=== PATIENT | female | born 1960 | race Caucasian/White ===

== ENCOUNTER 2019-05-11 09:31 | Inpatient (IN) | payer BC, SELFPAY ==
[2019-05-11] VITALS (62 sets, daily range): BP systolic 81–112; BP diastolic 51–71; PULSE 85–107; RESP 18–22; TEMP 36.9–37.3; O2SAT 86–96; BMI 28.3
--- NOTE | 2019-05-11 09:47 | ED_ITS ---
Entered by Arvind Self LPN, acting as scribe for Jj Taylor DO HPI - Nausea/Vomiting/Diarrhea General: Chief complaint: Nausea/Vomiting/Diarrhea Stated complaint: dizzy Time Seen by Provider: 05/11/19 09:40 Source: patient and RN notes reviewed Mode of arrival: ambulatory Limitations: no limitations History of Present Illness: HPI Narrative: 59 yo female presents with c/o n/v/d that started this am. No blood in emesis or stool. She reports intermittent hot and cold chills. No known fever, temp is 98.4 upon arrival to ER. She reports hurting all over. She c/o dizziness to nursing. Pt with h/o DM, did not take her meds this am. MD elicited complaint: nausea, vomiting and diarrhea Onset (ago): hour(s) (onset 0500 this am) Associated nausea: Yes Associated symtoms: Reports dizziness and nausea; Denies bloating, chest pain, dysuria, fatigue or malaise Review of Systems Const: Reports: chills; Denies: fever, body aches, change in appetite, fatigue or malaise ENMT: Denies: throat pain, ear pain, nasal discharge or nasal congestion Card: Denies: chest pain, edema, shortness of breath on exertion or shortness of breath when lying down Resp: Denies: shortness of breath, productive cough or non-productive cough GI: Reports: abdominal pain (generalized), nausea, vomiting and diarrhea; Denies: vomiting blood, coffee grounds in vomit, constipation, bloating, blood in stool or black tarry stool : Denies: flank pain, difficulty urinating, painful urination, urinary frequency or urinary urgency Skin/Breast: Denies: rash or itching Neuro: Reports: dizziness PFSH ED PFSH: Statuses (acute, chronic, etc) shown below reflect problem list status as previously entered and may not be historically accurate Surgical History History of tonsillectomy (Acute) Family History Other CAD (coronary artery disease) Social History Smoking and tobacco status: never smoked Alcohol intake: never Substance/Drug Use: never Physical Exam Const: COMMON NORMALS: oriented x3, no limitations and alert GENERAL APPEARANCE: cooperative and other (ill appearing) ORIENTATION/CONSCIOUSNESS: Yes awake, Yes oriented to person, Yes oriented to place and Yes oriented to time HENMT: COMMON NORMALS: normocephalic, head/scalp atraumatic, hearing grossly normal bilaterally, external ears normal, EAC's normal, TM's normal bilaterally, nasal mucous membranes and turbinates normal, moist oral mucous membranes and oropharynx normal HEAD & SCALP: normocephalic and atraumatic NOSE: nasal mucous membranes and turbinates normal EXTERNAL EAR: Yes external ears normal EXTERNAL AUDITORY CANAL: EAC's normal TYMPANIC MEMBRANE: TM's normal bilaterally Eye: COMMON NORMALS: PERRL, EOMs intact bilaterally, conjunctivae normal and no scleral icterus CONJUNCTIVA: Yes conjunctivae normal PUPIL: Yes PERRL Neck/C-Spine: COMMON NORMALS: full ROM, no lymphadenopathy, supple and no JVD Lymph: LYMPHATIC: no lymphadenopathy noted and no lymphedema noted Resp: COMMON NORMALS: normal respiratory effort, no retractions, no use of accessory muscles and clear to auscultation bilaterally AUSCULTATION: clear to auscultation bilaterally Cardio: COMMON NORMALS: no JVD, regular rate, regular rhythm and no murmurs RATE: regular rate RHYTHM: regular rhythm GI: COMMON NORMALS: no hepatosplenomegaly AUSCULTATION: Yes normoactive bowel sounds PALPATION: Yes tender (generalized) and Yes no hepatosplenomegaly : BLADDER/KIDNEY EXAM: Yes CVA tenderness (R>>L) Back/Pelvis: GENERAL BACK: Yes CVA tenderness (R>>L) CVA tenderness: bilateral Extremity: COMMON NORMALS: normal to inspection, normal capillary refill, no clubbing, cyanosis or edema, no calf tenderness and no pedal edema Neuro: COMMON NORMALS: oriented x3 SENSORIUM/ORIENTATION: Yes alert, Yes oriented to person, Yes oriented to place and Yes oriented to time Skin: COMMON NORMALS: no rashes or lesions noted GENERAL SKIN EXAM: no rashes or lesions noted and other (face flushed) Course Consultations: Consultation #1: Discussed with Dr. Martinez. He accepts for admission. Time: 16:07 Vital Signs: Vital signs: Vital Signs Temperature 97.6 F 05/13/19 11:36 Pulse Rate 80 05/13/19 11:36 Respiratory Rate 18 05/13/19 11:36 Blood Pressure 136/79 05/13/19 11:36 Pulse Oximetry 93 05/13/19 11:36 MDM - Nausea/Vomiting/Diarrhea Lab Data: Labs: Lab Results 05/11/19 05/11/19 05/11/19 Range/Units 10:02 10:02 10:02 WBC 5.9 (4.0-10.0) 10^3/ uL RBC 4.75 (4.1-5.3) 10^6/u L Hgb 14.9 (11.5-15.3) g/dL Hct 46.6 (37.0-47.0) % MCV 98.1 (81-99) fL MCH 31.4 (28.0-34.0) pg MCHC 32.0 (30.0-36.0) g/dL RDW 13.4 (12.1-15.1) % Plt Count 246 (130-400) 10^3/c mm MPV 9.7 (7.4-10.4) fL Neut % (Auto) 91.6 % Lymph % (Auto) 6.0 % [place] % (Auto) 0.5 % Eos % (Auto) 0.2 % Baso % (Auto) 0.3 % Neut # (Auto) 5.4 (1.8-7.7) 10^3/u L Lymph # (Auto) 0.4 L (0.8-4.8) 10^3/u L [place] # (Auto) 0.0 L (0.2-0.9) 10^3/u L Eos # (Auto) 0.0 (0.0-0.8) 10^3/u L Baso # (Auto) 0.0 (0.0-0.1) 10^3/u L Nucleated RBC % (a uto) 0 % Nucleated RBCs # 0.0 /100WBC Sodium 139 (136-145) mmol/L Potassium 3.5 (3.5-5.1) mmol/L Chloride 102 (98-107) mmol/L Carbon Dioxide 21 L (22-29) mmol/L Anion Gap 19.5 H (5-19) BUN 22 H (6-20) mg/dL Creatinine 1.3 H (0.5-0.9) mg/dL GFR Calculation 42.2 L (90-130) mL/min Glucose 458 H (74-109) mg/dL Calcium 9.3 (8.6-10.0) mg/Dl Total Bilirubin 0.9 (0.15-1.2) mg/dL AST 14 (0-32) U/L ALT 20 (0-33) U/L Alkaline Phosphata se 106 H (35-105) IU/L Troponin I 6 Hour (0-10) ng/L Troponin I Hi Sens Del (0-12) ng/L Troponin T Baselin e 30 H (0-10) ng/mL Troponin T 120 Min [place] (0-10) ng/mL Delta Troponin T (0-10) ABS# Total Protein 5.8 L (6.6-8.7) g/dL Albumin 3.7 (3.5-5.2) g/dL Globulin 2.1 (1.3-4.6) g/dL Urine Color (Yellow) Urine Appearance (CLEAR) Urine pH (5-7) Ur Specific Gravit y (1.005-1.030) Urine Protein (Negative) Urine Glucose (UA) (Normal) Urine Ketones (Negative) Urine Occult Blood (Negative) Urine Nitrate (Negative) Urine Bilirubin (NEGATIVE) Urine Urobilinogen (Negative) mg/dL Ur Leukocyte Izzy ase (Negative) Urine RBC (0-2) /hpf Urine WBC (0-5) /hpf Ur Squamous Epith Cells (0-5) Urine Bacteria (NONE) Influenza Type A A g (Negative) POC Influenza B Ag (Negative) 05/11/19 05/11/19 05/11/19 Range/Units 10:11 12:18 12:21 WBC (4.0-10.0) 10^3/ uL RBC (4.1-5.3) 10^6/u L Hgb (11.5-15.3) g/dL Hct (37.0-47.0) % MCV (81-99) fL MCH (28.0-34.0) pg MCHC (30.0-36.0) g/dL RDW (12.1-15.1) % Plt Count (130-400) 10^3/c mm MPV (7.4-10.4) fL Neut % (Auto) % Lymph % (Auto) % [place] % (Auto) % Eos % (Auto) % Baso % (Auto) % Neut # (Auto) (1.8-7.7) 10^3/u L Lymph # (Auto) (0.8-4.8) 10^3/u L [place] # (Auto) (0.2-0.9) 10^3/u L Eos # (Auto) (0.0-0.8) 10^3/u L Baso # (Auto) (0.0-0.1) 10^3/u L Nucleated RBC % (a uto) % Nucleated RBCs # /100WBC Sodium (136-145) mmol/L Potassium (3.5-5.1) mmol/L Chloride (98-107) mmol/L Carbon Dioxide (22-29) mmol/L Anion Gap (5-19) BUN (6-20) mg/dL Creatinine (0.5-0.9) mg/dL GFR Calculation (90-130) mL/min Glucose (74-109) mg/dL Calcium (8.6-10.0) mg/Dl Total Bilirubin (0.15-1.2) mg/dL AST (0-32) U/L ALT (0-33) U/L Alkaline Phosphata se (35-105) IU/L Troponin I 6 Hour (0-10) ng/L Troponin I Hi Sens Del (0-12) ng/L Troponin T Baselin e (0-10) ng/mL Troponin T 120 Min [place] 25.69 H (0-10) ng/mL Delta Troponin T -4.31 L (0-10) ABS# Total Protein (6.6-8.7) g/dL Albumin (3.5-5.2) g/dL Globulin (1.3-4.6) g/dL Urine Color Yellow (Yellow) Urine Appearance Hazy A (CLEAR) Urine pH 7 (5-7) Ur Specific Gravit y 1.005 (1.005-1.030) Urine Protein Neg (Negative) Urine Glucose (UA) 2+ (Normal) Urine Ketones 1+ H (Negative) Urine Occult Blood 3+ H (Negative) Urine Nitrate Negative (Negative) Urine Bilirubin Neg (NEGATIVE) Urine Urobilinogen Norm (Negative) mg/dL Ur Leukocyte Izzy ase 2+ H (Negative) Urine RBC >100 H (0-2) /hpf Urine WBC Too numerous to c nt H (0-5) /hpf Ur Squamous Epith Cells 5-10 H (0-5) Urine Bacteria 4+ H (NONE) Influenza Type A A g Negative (Negative) POC Influenza B Ag Negative (Negative) 05/11/19 Range/Units 16:04 WBC (4.0-10.0) 10^3/ uL RBC (4.1-5.3) 10^6/u L Hgb (11.5-15.3) g/dL Hct (37.0-47.0) % MCV (81-99) fL MCH (28.0-34.0) pg MCHC (30.0-36.0) g/dL RDW (12.1-15.1) % Plt Count (130-400) 10^3/c mm MPV (7.4-10.4) fL Neut % (Auto) % Lymph % (Auto) % Montgomery % (Auto) % Eos % (Auto) % Baso % (Auto) % Neut # (Auto) (1.8-7.7) 10^3/u L Lymph # (Auto) (0.8-4.8) 10^3/u L [place] # (Auto) (0.2-0.9) 10^3/u L Eos # (Auto) (0.0-0.8) 10^3/u L Baso # (Auto) (0.0-0.1) 10^3/u L Nucleated RBC % (a uto) % Nucleated RBCs # /100WBC Sodium (136-145) mmol/L Potassium (3.5-5.1) mmol/L Chloride (98-107) mmol/L Carbon Dioxide (22-29) mmol/L Anion Gap (5-19) BUN (6-20) mg/dL Creatinine (0.5-0.9) mg/dL GFR Calculation (90-130) mL/min Glucose (74-109) mg/dL Calcium (8.6-10.0) mg/Dl Total Bilirubin (0.15-1.2) mg/dL AST (0-32) U/L ALT (0-33) U/L Alkaline Phosphata se (35-105) IU/L Troponin I 6 Hour 23.58 H (0-10) ng/L Troponin I Hi Sens Del -6.42 L (0-12) ng/L Troponin T Baselin e (0-10) ng/mL Troponin T 120 Min [place] (0-10) ng/mL Delta Troponin T (0-10) ABS# Total Protein (6.6-8.7) g/dL Albumin (3.5-5.2) g/dL Globulin (1.3-4.6) g/dL Urine Color (Yellow) Urine Appearance (CLEAR) Urine pH (5-7) Ur Specific Gravit y (1.005-1.030) Urine Protein (Negative) Urine Glucose (UA) (Normal) Urine Ketones (Negative) Urine Occult Blood (Negative) Urine Nitrate (Negative) Urine Bilirubin (NEGATIVE) Urine Urobilinogen (Negative) mg/dL Ur Leukocyte Izzy ase (Negative) Urine RBC (0-2) /hpf Urine WBC (0-5) /hpf Ur Squamous Epith Cells (0-5) Urine Bacteria (NONE) Influenza Type A A g (Negative) POC Influenza B Ag (Negative) Imaging Data^: CT Abd/Pel: Radiologist's impression: Patient: Shakira DREW #: [id number] : 2Acct#:[id number] Age/Sex: 59 / FADM Date: 05/11/19 Loc: ERRoom/Bed: Attending Dr: Ordering Provider/Ordering MD: Jj Taylor DO Date of Service: 05/11/19 Procedure(s): CT kidney stone 68717 Accession Number(s): [id number] Report Number: [id number] PROCEDURE INFORMATION: Exam: CT Abdomen And Pelvis Without Contrast Exam date and time: 05/11/2019 1:10 PM Age: 59 years old Clinical indication: Abdominal pain; Other: Abd and back pain; Additional info: Hematuria TECHNIQUE: Imaging protocol: Computed tomography of the abdomen and pelvis without contrast. Total DLP: 1425.6 mGy-cm Radiation optimization: All CT scans at this facility use at least one of these dose optimization techniques: automated exposure control; mA and/or kV adjustment per patient size (includes targeted exams where dose is matched to clinical indication); or iterative reconstruction. COMPARISON: No relevant prior studies available. FINDINGS: Lungs: There are centrilobular emphysematous changes in the bilateral lungs. Streaky densities at the lung bases are most consistent with scarring and/or atelectasis. Liver: Normal. No mass. Gallbladder and bile ducts: Normal. No calcified stones. No ductal dilation. Pancreas: An 11 mm cystic lesion along the anterior aspect of the pancreatic body. Spleen: Normal. No splenomegaly. Adrenals: Adrenal glands are somewhat full appearing without a distinct mass lesions seen. Left adrenal gland is somewhat obscured by the left perinephric stranding. Kidneys and ureters: Moderate left hydronephrosis and left hydroureter with associated perinephric and periureteral inflammatory stranding. A submillimeter calcification along the distal left ureter seen on series 2, image 139 appears to be positioned outside the ureter and represents a phlebolith. No definite obstructing ureteral calculus identified. Stomach and bowel: Unremarkable. No obstruction. No mucosal thickening. Appendix: No evidence of appendicitis. Intraperitoneal space: Unremarkable. No free air. No significant fluid collection. Vasculature: Unremarkable. No abdominal aortic aneurysm. Lymph nodes: Unremarkable. No enlarged lymph nodes. Bladder: Unremarkable as visualized. Reproductive: Fibroid uterus. Bones/joints: Unremarkable. No acute fracture. Soft tissues: Unremarkable. CT/CT kidney stone [id number] IMPRESSION: 1. There is a left perinephric/periureteral inflammatory stranding with hydronephrosis/hydroureter. No definite obstructing urinary tract calculus identified. CT scan abdomen/pelvis with IV contrast and delayed images, renal protocol recommended to evaluate for pyelonephritis if clinically warranted. 2. There is an 11 mm cystic lesion along the anterior aspect of the pancreas.Recommend reimage every 1 year for 5 years. (ROSA Millard et al. ACR White Paper, October 2016) 3. There are centrilobular emphysematous changes in the bilateral lungs. Radiation Dose CTDIVOL = (mGy): DLP = 1425.6 (mGy-cm) Dictated By:Cindy Olmedo MD EKG Data^: EKG 1: Attestation: I personally reviewed and interpreted this EKG as follows: Prior EKG tracings: not available for review Computer generated interpretation: Measurements Intervals [place] Rate: 107 P: 44 [place]: 126 QRS: -1 QRSD: 87 T: 24 QT: 324 QTc: 432 SINUS TACHYCARDIA ABNORMAL RHYTHM ECG INTERPRETATION BASED ON A DEFAULT AGE OF 40 YEARS No previous ECG available for comparison [id number] Dictated By:INTERFACE,USER Signed By:Signed Date/Time: DD/ 1049 EKG 2: Computer generated interpretation: Measurements Intervals [place] Rate: 109 P: 31 IL: 133 QRS: -15 QRSD: 93 T: 1 QT: 317 QTc: 428 SINUS TACHYCARDIA LOW QRS VOLTAGE IN PRECORDIAL LEADS [QRS DEFLECTION < 1.0 mV IN CHEST LEADS] POSSIBLE ANTERIOR MYOCARDIAL INFARCTION , OF INDETERMINATE AGE [30 ms Q WAVE IN V3/V V3/V V3/V V3/V4, OR R < 0.2 mV IN V4] INFERIOR MYOCARDIAL INFARCTION , PROBABLY OLD [40+ ms Q WAVE AND/OR ST/T ABN ABNORMALITY IN II/aVF] INTERPRETATION BASED ON A DEFAULT AGE OF 40 YEARS No previous ECG available for comparison [email or web address] [id number] Dictated By:INTERFACE,USER Signed By:Signed Date/Time: DD/ 1211 Discharge Plan Discharge Patient Disposition: Admitted As Inpatient Admit Provider: Lavon Martinze Clinical Impression: Acute pyelonephritis, Diabetes Condition: Stable Referrals: Moon Mahmood FNP [Primary Care Provider] - Interventions: ED Discharge Assessment Last Done: 05/11/19 16:55 Discharge Date/Time: 05/11/19 17:20 Coding Level of Care Code ED Certified Orthotist Practice Manager for Chg Fwd Exam Problem Focused The documentation recorded by the Aramis russell Dani Elizabeth, LPN, accurately reflects the service I personally performed and the decisions made by Brandon lovett Curtis L, DO May 11, 2019 09:31
[2019-05-11] MEDS: sodium chloride 0.9% 1,000 ML 999 ML IV (10:04)
[2019-05-11] MEDS: ondansetron 2 mg/ML SDV 2 mL 4 MG IVP (10:04)
--- NOTE | 2019-05-11 10:05 | ECG_ITS ---
Measurements Intervals [place] Rate: 107 P: 44 [place]: 126 QRS: -1 QRSD: 87 T: 24 QT: 324 QTc: 432 SINUS TACHYCARDIA ABNORMAL RHYTHM ECG INTERPRETATION BASED ON A DEFAULT AGE OF 40 YEARS No previous ECG available for comparison Electronically Signed On 05-11-2019 16:47:17 INDUSTRIAL SALES MANAGER by Jessica Farley M.D. [id number]
[2019-05-11 10:15] LABS: Basophils % 0.3 %; Eosinophils % 0.2 %; Hematocrit 46.6 % (37.0-47.0); Hemoglobin 14.9 g/dL (11.5-15.3); Lymphocytes # 0.4 10^3/uL (0.8-4.8); Mean Corpuscular Hemoglobin 31.4 pg (28.0-34.0); Mean Corpuscular Volume 98.1 fL (81-99); Mean Platelet Volume 9.7 fL (7.4-10.4); Monocytes % 0.5 %; Neutrophils # 5.4 10^3/uL (1.8-7.7); Neutrophils % 91.6 %; Nucleated Red Blood Cells % 0 %; Platelet Count 246 10^3/cmm (130-400); Red Blood Count 4.75 10^6/uL (4.1-5.3); Red Cell Distribution Width 13.4 % (12.1-15.1); White Blood Count 5.9 10^3/uL (4.0-10.0)
[2019-05-11 10:30] LABS: Alanine Aminotransferase 20 U/L (0-33); Albumin Level 3.7 g/dL (3.5-5.2); Alkaline Phosphatase 106 IU/L (35-105); Anion Gap 19.5 (5-19); Aspartate Amino Transferase 14 U/L (0-32); Blood Urea Nitrogen 22 mg/dL (6-20); Calcium 9.3 mg/Dl (8.6-10.0); Carbon Dioxide 21 mmol/L (22-29); Chloride 102 mmol/L (98-107); Globulin 2.1 g/dL (1.3-4.6); Glomerular Filtration Rate 42.2 mL/min (90-130); Glucose 458 mg/dL (74-109); Potassium 3.5 mmol/L (3.5-5.1); Sodium 139 mmol/L (136-145); Total Bilirubin 0.9 mg/dL (0.15-1.2); Total Protein 5.8 g/dL (6.6-8.7)
[2019-05-11 10:31] LABS: Troponin(5th) Baseline 30 ng/mL (0-10)
[2019-05-11 10:47] LABS: Slide Review Slide Review Perform
[2019-05-11 11:10] LABS: Influenza A by IFA Negative (Negative); Influenza B by IFA Negative (Negative)
--- NOTE | 2019-05-11 12:05 | ECG_ITS ---
Measurements Intervals [place] Rate: 109 P: 31 NM: 133 QRS: -15 QRSD: 93 T: 1 QT: 317 QTc: 428 SINUS TACHYCARDIA LOW QRS VOLTAGE IN PRECORDIAL LEADS [QRS DEFLECTION < 1.0 mV IN CHEST LEADS] POSSIBLE ANTERIOR MYOCARDIAL INFARCTION , OF INDETERMINATE AGE [30 ms Q WAVE IN V3/V4, OR R < 0.2 mV IN V4] INFERIOR MYOCARDIAL INFARCTION , PROBABLY OLD [40+ ms Q WAVE AND/OR ST/T ABN ABNORMALITY IN II/aVF] INTERPRETATION BASED ON A DEFAULT AGE OF 40 YEARS No previous ECG available for comparison Electronically Signed On 05-11-2019 16:51:54 AUCTION ASSISTANT by Jessica Farley M.D. [id number]
[2019-05-11 12:56] LABS: Urine Appearance Hazy (CLEAR); Urine Color Yellow (Yellow); pH Urine 7 (5-7)
[2019-05-11 12:57] LABS: Add Urine Microscopic? YES; Bilirubin Urine Neg (NEGATIVE); Blood Urine 3+ (Negative); Glucose Urine UA 2+ (Normal); Ketones Urine 1+ (Negative); Leukocyte Esterase Urine 2+ (Negative); Nitrate Urine Negative (Negative); Protein Urine Neg (Negative); Specific Gravity, Urine 1.005 (1.005-1.030); Urobilinogen Urine Norm (Negative)
[2019-05-11 13:00] LABS: Troponin 5 2HR 25.69 ng/mL (0-10)
[2019-05-11 13:03] LABS: RBC Urine >100 /hpf (0-2)
[2019-05-11 13:04] LABS: Add Urine Culture? Yes; Bacteria Urine 4+; WBC Urine TOO NUMEROUS TO CNT /hpf (0-5)
--- NOTE | 2019-05-11 13:08 | CTR_ITS ---
PROCEDURE INFORMATION: Exam: CT Abdomen And Pelvis Without Contrast Exam date and time: 05/11/2019 1:10 PM Age: 59 years old Clinical indication: Abdominal pain; Other: Abd and back pain; Additional info: Hematuria TECHNIQUE: Imaging protocol: Computed tomography of the abdomen and pelvis without contrast. Total DLP: 1425.6 mGy-cm Radiation optimization: All CT scans at this facility use at least one of these dose optimization techniques: automated exposure control; mA and/or kV adjustment per patient size (includes targeted exams where dose is matched to clinical indication); or iterative reconstruction. COMPARISON: No relevant prior studies available. FINDINGS: Lungs: There are centrilobular emphysematous changes in the bilateral lungs. Streaky densities at the lung bases are most consistent with scarring and/or atelectasis. Liver: Normal. No mass. Gallbladder and bile ducts: Normal. No calcified stones. No ductal dilation. Pancreas: An 11 mm cystic lesion along the anterior aspect of the pancreatic body. Spleen: Normal. No splenomegaly. Adrenals: Adrenal glands are somewhat full appearing without a distinct mass lesions seen. Left adrenal gland is somewhat obscured by the left perinephric stranding. Kidneys and ureters: Moderate left hydronephrosis and left hydroureter with associated perinephric and periureteral inflammatory stranding. A submillimeter calcification along the distal left ureter seen on series 2, image 139 appears to be positioned outside the ureter and represents a phlebolith. No definite obstructing ureteral calculus identified. Stomach and bowel: Unremarkable. No obstruction. No mucosal thickening. Appendix: No evidence of appendicitis. Intraperitoneal space: Unremarkable. No free air. No significant fluid collection. Vasculature: Unremarkable. No abdominal aortic aneurysm. Lymph nodes: Unremarkable. No enlarged lymph nodes. Bladder: Unremarkable as visualized. Reproductive: Fibroid uterus. Bones/joints: Unremarkable. No acute fracture. Soft tissues: Unremarkable. CT/CT kidney stone [id number] IMPRESSION: 1. There is a left perinephric/periureteral inflammatory stranding with hydronephrosis/hydroureter. No definite obstructing urinary tract calculus identified. CT scan abdomen/pelvis with IV contrast and delayed images, renal protocol recommended to evaluate for pyelonephritis if clinically warranted. 2. There is an 11 mm cystic lesion along the anterior aspect of the pancreas.Recommend reimage every 1 year for 5 years. (AJ Megibow, et al. ACR White Paper, October 2016) 3. There are centrilobular emphysematous changes in the bilateral lungs. Radiation Dose CTDIVOL = (mGy): DLP = 1425.6 (mGy-cm)
[2019-05-11 13:21] LABS: Troponin 5 2HR Delta -4.31 ABS# (0-10)
--- NOTE | 2019-05-11 16:05 | ECG_ITS ---
Measurements Intervals [place] Rate: 103 P: 26 [place]: 135 QRS: -8 QRSD: 85 T: 10 QT: 324 QTc: 426 SINUS TACHYCARDIA LOW QRS VOLTAGE IN PRECORDIAL LEADS [QRS DEFLECTION < 1.0 mV IN CHEST LEADS] INFERIOR MYOCARDIAL INFARCTION [40+ ms Q WAVE AND/OR ST/T ABNORMALITY IN II/aVF], PROBABLY OLD No previous ECG available for comparison Electronically Signed On 05-11-2019 16:52:03 BENZENE WASHER by Jessica Farley M.D. [id number]
[2019-05-11 16:24] LABS: Troponin 5 6HR 23.58 ng/L (0-10)
[2019-05-11 16:34] LABS: Troponin 5 6HR Delta -6.42 ng/L (0-12)
--- NOTE | 2019-05-11 17:07 | P.HP_ITS ---
Providers/Chief Complaint Primary Care Provider: Moon MahmoodP Chief Complaint: pydoneephtitis;dm History of Present Illness CRISTAL DREW is a 59 year old female with a past medical history of type 2 diabetes mellitus, recent hemoglobin A1c 10, who presents to the emergency room for nausea, malaise, fevers, chills, back pain for the last 12 hours. Patient states that she woke up this morning with significant nausea, malaise, fatigue, fevers, chills. No cough. No shortness of breath. No chest pain. No abdominal pain. Does report diarrhea. Does report bilateral lower back pain which is new for her. No dysuria. No hematuria. No increased urinary frequency. No history of kidney stones. No history of UTIs. No sick contacts. No recent travel. States that she lives by herself in [facility], her parents live a few blocks away from her. Review of Systems Const: Reports: fever, chills, body aches and malaise Eyes: Denies: change in vision ENMT: Denies: nasal congestion Card: Denies: chest pain Resp: Denies: shortness of breath, productive cough or non-productive cough GI: Reports: nausea; Denies: abdominal pain or vomiting : Reports: flank pain; Denies: difficulty urinating, painful urination, urinary frequency, urinary urgency, urinary hesitancy, urinary dribbling, nighttime urination, decreased urine ouput, urinary incontinence or blood in urine Skin/Breast: Denies: rash Neuro: Denies: headache Psych: Denies: anxiety Endo: Reports: excessive thirst; Denies: excessive urination Medications/Allergies Home Medications Medication Instructions Recorded Confirmed Last Taken Type glipizide 5 mg PO BID 05/11/19 05/11/19 05/10/19 History metformin 1,000 mg PO BID 05/11/19 05/11/19 05/10/19 History Allergies Allergy/AdvReac Type Severity Reaction Status Date / Time No Known Allergies Allergy Verified 05/11/19 09:50 PFSH Acute PFSH: Statuses (acute, chronic, etc) shown below reflect problem list status as previously entered and may not be historically accurate Surgical History (Updated 05/11/19 @ 17:09 by Lavon Martinez MD) History of tonsillectomy (Acute) Family History (Updated 05/11/19 @ 17:10 by Lavon Martinez MD) Other CAD (coronary artery disease) Social History (Updated 05/11/19 @ 17:10 by Lavon Martinez MD) Smoking and tobacco status: never smoked Alcohol intake: never Substance/Drug Use: never Vitals/I&O/Wt Last Vital Signs Temp 98.4 F 05/11/19 09:47 Pulse 85 05/11/19 16:55 Resp 18 05/11/19 16:55 BP 96/64 05/11/19 16:55 Pulse Ox 94 05/11/19 16:55 Weight last 48 hrs Weight 74.843 kg Physical Exam Const: COMMON NORMALS: no apparent distress HENMT: COMMON NORMALS: normocephalic Eye: COMMON NORMALS: PERRL and EOMs intact bilaterally Neck/C-Spine: COMMON NORMALS: full ROM and no lymphadenopathy Lymph: LYMPHATIC: no lymphadenopathy noted Resp: COMMON NORMALS: normal respiratory effort, no retractions, no use of accessory muscles, clear to auscultation bilaterally and percussion normal Cardio: COMMON NORMALS: no JVD, regular rate, regular rhythm, S1 normal heart sound, S2 normal heart sound, no gallops and no clicks GI: COMMON NORMALS: normal to inspection, nondistended, normoactive bowel sounds, soft to palpation, non-tender and no hepatosplenomegaly : BLADDER/KIDNEY EXAM: Yes bladder normal to palpation and Yes CVA tenderness on the left Back/Pelvis: COMMON NORMALS: no thoracic nor lumbar tenderness Extremity: COMMON NORMALS: normal capillary refill, no clubbing, cyanosis or edema and no pedal edema Neuro: COMMON NORMALS: oriented x3 and CN's II-XII intact bilaterally Psych: COMMON NORMALS: mental status grossly normal and thought process normal Skin: COMMON NORMALS: no rashes or lesions noted Sepsis: Is patient septic: No Focused sepsis exam performed: Yes (No skin mottling, DP PT pulses 2+, peripheral pulses brisk, no tachycardia, no tachypnea) Data : 05/11/19 10:02 05/11/19 10:02 CT Abd/Pel: Radiologist's impression: 1. There is a left perinephric/periureteral inflammatory stranding with hydronephrosis/hydroureter. No definite obstructing urinary tract calculus identified. CT scan abdomen/pelvis with IV contrast and delayed images, renal protocol recommended to evaluate for pyelonephritis if clinically warranted. 2. There is an 11 mm cystic lesion along the anterior aspect of the pancreas.Recommend reimage every 1 year for 5 years. (ROSA Millard et al. ACR White Paper, October 2016) 3. There are centrilobular emphysematous changes in the bilateral lungs. A&P Assessment and plan (1) Acute pyelonephritis: Urine cultures Blood cultures Continue Rocephin IV hydration, lactated Ringer's Monitor vitals closely Zofran for nausea Diabetic diet Morphine for pain Status: Acute Code(s): N10 - Acute pyelonephritis (2) Diabetes: Mild dose sliding scale Status: Acute Code(s): E11.9 - Type 2 diabetes mellitus without complications Attestations Medical Necessity Statement*: Patient requires hospitalization, outpatient, for acute pyelonephritis Coding Level of Care Code Acute Director Quality Assurance for [facility] Diagnoses Acute pyelonephritis N10 Diabetes E11.9
[2019-05-11] MEDS: enoxaparin 40 mg/0.4 mL Syringe SUBCUT (18:07)
[2019-05-11] MEDS: lactated ringers 1,000 ML 125 ML IV (18:07)
[2019-05-11] MEDS: cefTRIAXone 1,000 MG in sodium chloride 0.9% (plus) 50 ML 100 MG IV (18:07)
[2019-05-11 18:17] LABS: Glucose Point of Care 452 mg/dL (70-110)
--- NOTE | 2019-05-11 18:26 | PC.NURSE ---
Pt arrived to the unit at 1725 via w/c from ED. This nurse assisted pt to use the restroom. Cloudy, dark yellow, foul odor urine noted. Pt denies c/o pain or burning with voiding. Orientated to room and surroundings. SCDs in place. Pt supper blood sugar 452. Received 16 units of Novolog per sliding scale. Dr. Martinez aware. Call light in reach, side rails up x2, room free of clutter. Denies any needs at this time.
[2019-05-11] MEDS: acetaminophen 325 mg Tablet 650 MG PO (20:40)
[2019-05-11 21:42] LABS: Glucose Point of Care 328 mg/dL (70-110)
[2019-05-12] VITALS (8 sets, daily range): BP systolic 83–137; BP diastolic 53–85; PULSE 85–99; RESP 18–22; TEMP 36.6–37; O2SAT 91–94
[2019-05-12] MEDS: ondansetron 2 mg/ML SDV 2 mL 4 MG IVP ×2 (01:52→09:29)
[2019-05-12] MEDS: acetaminophen 325 mg Tablet 650 MG PO ×3 (02:49→20:39)
[2019-05-12] MEDS: lactated ringers 1,000 ML 125 ML IV ×2 (03:08→08:46)
[2019-05-12 04:55] LABS: Basophils # 0.1 10^3/uL (0.0-0.1); Basophils % 0.3 %; Hematocrit 37.1 % (37.0-47.0); Hemoglobin 12.3 g/dL (11.5-15.3); Lymphocytes # 0.5 10^3/uL (0.8-4.8); Lymphocytes % 2.7 %; Mean Corpuscular HGB Conc 33.2 g/dL (30.0-36.0); Mean Corpuscular Hemoglobin 31.8 pg (28.0-34.0); Mean Corpuscular Volume 95.9 fL (81-99); Mean Platelet Volume 10.5 fL (7.4-10.4); Monocytes # 1.2 10^3/uL (0.2-0.9); Monocytes % 6.6 %; Neutrophils # 15.6 10^3/uL (1.8-7.7); Neutrophils % 86.9 %; Nucleated Red Blood Cells % 0 %; Platelet Count 188 10^3/cmm (130-400); Red Blood Count 3.87 10^6/uL (4.1-5.3); Red Cell Distribution Width 13.8 % (12.1-15.1)
[2019-05-12 05:33] LABS: Alanine Aminotransferase 18 U/L (0-33); Alkaline Phosphatase 57 IU/L (35-105); Aspartate Amino Transferase 14 U/L (0-32); Blood Urea Nitrogen 21 mg/dL (6-20); Calcium 8.7 mg/Dl (8.6-10.0); Carbon Dioxide 20 mmol/L (22-29); Chloride 105 mmol/L (98-107); Glomerular Filtration Rate 57.1 mL/min (90-130); Glucose 273 mg/dL (74-109); Magnesium 1.6 mg/dL (1.7-2.3); Phosphorus 3.9 mg/dL (2.5-4.5); Sodium 137 mmol/L (136-145); Total Bilirubin 0.7 mg/dL (0.15-1.2)
[2019-05-12 07:00] LABS: Glucose Point of Care 215 mg/dL (70-110)
[2019-05-12 07:30] LABS: Procalcitonin > 100.00 ng/mL (0-0.8)
[2019-05-12] MEDS: lactated ringers 500 ML 999 ML IV (11:44)
[2019-05-12 11:58] LABS: Glucose Point of Care 281 mg/dL (70-110)
--- NOTE | 2019-05-12 13:52 | PC.CHAP ---
Pastoral Care Encounter/Spiritual Assessment Type of Contact [] Declined chief of harbor patrol visit [] Patient/Family/Request visit [] Outpatient visit [] Follow-up visit [] Physician referral [] Code/Alert [x] Routine visit [] Staff referral [] Actively dying [] Patient sleeping [x] Family support [] [] Out of room [] Palliative care [] [] Receiving care in room [] Pre-surgical visit [] Trauma [] Long length of stay [] ICU visit [] Other: Relational/Emotional Strength [xx] Patient feels connected with others/family/visitors/staff [] Distress [] Loneliness/isolation [] Abandonment Spirituality of Patient [x] Person of Marta [x] Attends Mandaeism of their Marta [x] Believes in Prayer [x] Reads Bible or Spiritism materials [] There are Spiritual issues to be addressed Wire Stitcher Operator Interventions [x] Prayer [x] Active listening [x] Non-anxious presence [x] Spiritual/emotional support [] Crisis/trauma care [] Spiritual counseling [] Bereavement support [] Provided bereavement packet [] Provided Bible/devotional materials [] Provided toy/stuffed animal, coloring book to patient or family member [] Completed spiritual assessment [] Provided Communion [] Anointing/[place] [] Salvation [] Other: Impact on Illness or Injury [] Angry [] Fearful [] Anxious [] Often cries [] Exhaustion [] Unable to work [] Unable to attend cheondoism [] Unable to walk/stand [] Unable to read [] Unable to drive [] Unable to eat/drink [] Unable to sleep [] Unable to be with family [] Other: Summary PATIENT SAID THAT SHE WAS COLD, WRAPPED UP IN CAP AND SCRAF. HAD A GOOD VISIT, VERY PLEASANT/ Time spent with patient 10 MIN.
--- NOTE | 2019-05-12 15:10 | PM.PN ---
Subjective Subjective: Interval history: Patient states that she is significantly doing better this morning, no fevers, no chills overnight, still feels having fatigue and malaise, and poor appetite, some lightheadedness, and back pain, but overall doing better Patient's white blood cell count is 18,000, pro-Quinn greater than 100, unfortunately no blood culture was obtained in the emergency room, I am highly suspicious of bacteremia with associated pyelonephritis, patient is agreeable to stay for another 24 hours of antibiotics, and following urine and blood cultures Vitals/I&O/Wt Last Vital Signs Temp 97.8 F 05/12/19 14:00 Pulse 93 05/12/19 14:00 Resp 20 H 05/12/19 14:00 BP 124/80 05/12/19 14:00 Pulse Ox 94 05/12/19 14:00 05/12/19 05/12/19 05/12/19 06:59 14:59 22:59 Intake Total 1200 / 1200 1164.167 / 1164.167 Output Total 800 / 800 Balance 1200 / 799 364.167 / 364.167 Weight last 48 hrs Weight 87.543 kg Weight 74.843 kg Physical Exam Const: COMMON NORMALS: no apparent distress and oriented x3 Neck/C-Spine: COMMON NORMALS: no JVD Lymph: LYMPHATIC: no lymphadenopathy noted Resp: COMMON NORMALS: normal respiratory effort, no retractions, no use of accessory muscles, clear to auscultation bilaterally and percussion normal AUSCULTATION: clear to auscultation bilaterally PERCUSSION: percussion normal Cardio: COMMON NORMALS: no JVD, regular rate, regular rhythm, S1 normal heart sound, S2 normal heart sound, no gallops and no clicks RATE: regular rate RHYTHM: regular rhythm HEART SOUNDS: S1 normal and S2 normal GI: COMMON NORMALS: normal to inspection, nondistended, normoactive bowel sounds, soft to palpation, non-tender and no hepatosplenomegaly PALPATION: Yes soft and Yes no hepatosplenomegaly : BLADDER/KIDNEY EXAM: Yes bladder normal to palpation and Yes CVA tenderness on the left BIMANUAL EXAM - VAGINA & UTERUS: Yes bladder normal to palpation Back/Pelvis: GENERAL BACK: Yes CVA tenderness Extremity: COMMON NORMALS: normal capillary refill, no clubbing, cyanosis or edema and no pedal edema Neuro: COMMON NORMALS: oriented x3 Data Micro: Micro: Microbiology 05/12/19 09:31 Blood Culture - Pr eliminary Blood [facility] 05/12/19 09:31 Blood Culture - Pr eliminary Blood [facility] 05/11/19 12:21 Urine Culture - Pr eliminary Urine,Clean Catch Gram Negative R ods A&P Assessment and plan (1) Acute pyelonephritis: Unfortunately no blood cultures were obtained in the emergency room, given patient's significant leukocytosis of 18,000, pro-Quinn of 100, low blood pressures, I am highly suspicious of a bacteremia -I broaden patient's antibiotic coverage to Primaxin, I obtain blood cultures unfortunately after 24 hours of antibiotics, we will see what repeat blood cultures show, patient is agreeable to stay Urine cultures Blood cultures Continue Rocephin IV hydration, lactated Ringer's, bowel bolus as needed Monitor vitals closely Zofran for nausea Diabetic diet Morphine for pain Status: Acute Code(s): N10 - Acute pyelonephritis (2) Diabetes: Mild dose sliding scale Status: Acute Code(s): E11.9 - Type 2 diabetes mellitus without complications Attestations Medical Necessity Statement*: Patient requires continued hospitalization for acute pyelonephritis, highly suspicious of bacteremia Coding Level of Care Code Acute Waiter/Waitress Bar for [facility] [place] Diagnoses Acute pyelonephritis N10 Diabetes E11.9
[2019-05-12 16:44] LABS: Glucose Point of Care 246 mg/dL (70-110)
[2019-05-12] MEDS: enoxaparin 40 mg/0.4 mL Syringe SUBCUT (17:08)
[2019-05-12 22:04] LABS: Glucose Point of Care 223 mg/dL (70-110)
[2019-05-13] VITALS (9 sets, daily range): BP systolic 121–165; BP diastolic 68–112; PULSE 67–92; RESP 18–20; TEMP 36.4–36.9; O2SAT 92–98
[2019-05-13] MEDS: lactated ringers 1,000 ML 125 ML IV ×2 (03:11→22:20)
[2019-05-13] MEDS: ondansetron 2 mg/ML SDV 2 mL 4 MG IVP (03:11)
[2019-05-13] MEDS: acetaminophen 325 mg Tablet 650 MG PO (03:18)
[2019-05-13 06:35] LABS: Basophils # 0.1 10^3/uL (0.0-0.1); Basophils % 0.4 %; Eosinophils % 0.2 %; Hematocrit 40.6 % (37.0-47.0); Lymphocytes # 0.8 10^3/uL (0.8-4.8); Lymphocytes % 4.8 %; Mean Corpuscular Volume 96.7 fL (81-99); Mean Platelet Volume 10.9 fL (7.4-10.4); Monocytes # 0.8 10^3/uL (0.2-0.9); Neutrophils # 12.2 10^3/uL (1.8-7.7); Neutrophils % 72.5 %; Nucleated Red Blood Cells % 0 %; Platelet Count 182 10^3/cmm (130-400); Red Cell Distribution Width 13.9 % (12.1-15.1); White Blood Count 16.8 10^3/uL (4.0-10.0)
[2019-05-13 06:44] LABS: Slide Review Slide Review Perform
[2019-05-13 06:47] LABS: Absolute Segmented Neutrophil 7.3 10/cmm (1.6-7.1); Band Neutrophils Absolute 6.9 10^3/cmm (0.0-1.2); Lymphocytes 7 %; Monocytes Absolute 1.3 10^3/cmm (0.1-0.6); Segmented Neutrophils 44 %; Total Cells Counted 100 (0-100)
[2019-05-13 06:48] LABS: Platelet Estimate Normal (Normal)
[2019-05-13 06:57] LABS: Alanine Aminotransferase 21 U/L (0-33); Albumin Level 3.2 g/dL (3.5-5.2); Alkaline Phosphatase 92 IU/L (35-105); Anion Gap 15.9 (5-19); Aspartate Amino Transferase 16 U/L (0-32); Blood Urea Nitrogen 11 mg/dL (6-20); Calcium 9.6 mg/Dl (8.6-10.0); Carbon Dioxide 21 mmol/L (22-29); Chloride 107 mmol/L (98-107); Globulin 2.6 g/dL (1.3-4.6); Glomerular Filtration Rate 73.9 mL/min (90-130); Glucose 228 mg/dL (74-109); Potassium 3.9 mmol/L (3.5-5.1); Sodium 140 mmol/L (136-145); Total Bilirubin 0.7 mg/dL (0.15-1.2); Total Protein 5.8 g/dL (6.6-8.7)
[2019-05-13 07:08] LABS: Glucose Point of Care 185 mg/dL (70-110)
[2019-05-13 07:14] LABS: Procalcitonin > 100.00 ng/mL (0-0.8)
[2019-05-13 11:57] LABS: Glucose Point of Care 219 mg/dL (70-110)
[2019-05-13 16:48] LABS: Glucose Point of Care 228 mg/dL (70-110)
--- NOTE | 2019-05-13 16:54 | P.PN_ITS ---
Subjective Subjective: Interval history: Ivonne reports she feels better. She has some back discomfort. She still does not feel like eating but she has not thrown up. Medications: Reviewed: Yes Vitals/I&O/Wt Last Vital Signs Temp 98.0 F 05/13/19 15:31 Pulse 82 05/13/19 15:31 Resp 20 H 05/13/19 15:31 BP 148/102 05/13/19 15:31 Pulse Ox 96 05/13/19 15:31 05/13/19 05/13/19 05/13/19 06:59 14:59 22:59 Intake Total 200 / 2589.167 340 / 340 Output Total 1000 / 4800 Balance -800 / -2210.833 340 / 340 Weight last 48 hrs Weight 88.564 kg Weight 87.543 kg Physical Exam Narrative: EXAM NARRATIVE: General exam no apparent distress Cardiovascular regular rate and rhythm without murmur Lungs clear Abdomen is soft bowel sounds. Slight epigastric tenderness to palpation Extremities no cyanosis clubbing or edema Data Micro: Micro: Microbiology 05/11/19 12:21 Urine Culture - Fi nal Urine,Clean Catch Escherichia col i 05/12/19 09:31 Blood Culture - Pr eliminary Blood NEGATIVE TO DESHAUN E 05/12/19 09:31 Blood Culture - Pr eliminary Blood NEGATIVE TO DESHAUN E A&P Assessment and plan (1) Acute pyelonephritis: Currently on Primaxin. Patient improving. Urine cultures pending. No blood cultures were drawn prior to start of antibiotic. Nausea improved. Await culture. Possible discharge tomorrow. Status: Acute Code(s): N10 - Acute pyelonephritis (2) Diabetes: Continue sliding scale insulin Status: Acute Code(s): E11.9 - Type 2 diabetes mellitus without complications Attestations Medical Necessity Statement*: Needs continued IV antibiotics for pyelonephritis Coding Level of Care Code Acute Marketing And Communications Officer for [facility] Diagnoses Acute pyelonephritis N10 Diabetes E11.9
[2019-05-13] MEDS: enoxaparin 40 mg/0.4 mL Syringe SUBCUT (17:55)
[2019-05-13] MEDS: morphine 4 mg/mL SDV 1 mL 1 MG IVP (19:41)
[2019-05-13 22:39] LABS: Glucose Point of Care 155 mg/dL (70-110)
[2019-05-14] VITALS: BP 111/57; PULSE 108; RESP 18; TEMP 36.6; O2SAT 90
[2019-05-14 03:47] LABS: Alanine Aminotransferase 24 U/L (0-33); Alkaline Phosphatase 175 IU/L (35-105); Anion Gap 15.4 (5-19); Aspartate Amino Transferase 18 U/L (0-32); Blood Urea Nitrogen 12 mg/dL (6-20); Calcium 9.4 mg/Dl (8.6-10.0); Carbon Dioxide 23 mmol/L (22-29); Chloride 105 mmol/L (98-107); Globulin 2.9 g/dL (1.3-4.6); Glomerular Filtration Rate 64.5 mL/min (90-130); Glucose 166 mg/dL (74-109); Potassium 3.4 mmol/L (3.5-5.1); Sodium 140 mmol/L (136-145); Total Bilirubin 0.6 mg/dL (0.15-1.2); Total Protein 5.9 g/dL (6.6-8.7)
[2019-05-14 04:09] LABS: Basophils # 0.1 10^3/uL (0.0-0.1); Basophils % 0.6 %; Eosinophils % 0.1 %; Hematocrit 40.4 % (37.0-47.0); Hemoglobin 13.1 g/dL (11.5-15.3); Lymphocytes # 0.2 10^3/uL (0.8-4.8); Lymphocytes % 1.9 %; Mean Corpuscular HGB Conc 32.4 g/dL (30.0-36.0); Mean Corpuscular Volume 95.7 fL (81-99); Mean Platelet Volume 10.9 fL (7.4-10.4); Monocytes # 0.3 10^3/uL (0.2-0.9); Monocytes % 2.8 %; Neutrophils # 10.2 10^3/uL (1.8-7.7); Neutrophils % 94.3 %; Nucleated Red Blood Cells % 0 %; Platelet Count 147 10^3/cmm (130-400); Red Blood Count 4.22 10^6/uL (4.1-5.3); Red Cell Distribution Width 13.5 % (12.1-15.1); White Blood Count 10.8 10^3/uL (4.0-10.0)
[2019-05-14 04:48] VITALS: BP 110/68; PULSE 98; RESP 18; TEMP 36.6; O2SAT 90
[2019-05-14 06:38] LABS: Glucose Point of Care 178 mg/dL (70-110)
[2019-05-14 06:39] LABS: Slide Review Slide Review Perform
[2019-05-14 07:53] VITALS: BP 116/72; PULSE 85; RESP 18; TEMP 36.7; O2SAT 93
[2019-05-14] MEDS: lactated ringers 1,000 ML 125 ML IV ×2 (08:29→19:00)
[2019-05-14] MEDS: ondansetron 2 mg/ML SDV 2 mL 4 MG IVP (09:49)
[2019-05-14 11:46] VITALS: BP 111/74; PULSE 98; RESP 20; TEMP 37.1; O2SAT 92
[2019-05-14 12:09] LABS: Glucose Point of Care 147 mg/dL (70-110)
--- NOTE | 2019-05-14 13:05 | P.PN_ITS ---
Subjective Subjective: Interval history: Ivonne reports she feels very tired today. Her back is hurting worse. She is nauseous. She reports she is too weak to go home. She reports she could not even eat this morning. Medications: Reviewed: Yes Vitals/I&O/Wt Last Vital Signs Temp 98.7 F 05/14/19 11:46 Pulse 98 05/14/19 11:46 Resp 20 H 05/14/19 11:46 BP 111/74 05/14/19 11:46 Pulse Ox 92 05/14/19 11:46 05/13/19 05/14/19 05/14/19 22:59 06:59 14:59 Intake Total 200 / 1540 1240 / 2780 360 / 360 Output Total 1000 / 1000 4 / 4 Balance 200 / 1540 240 / 1780 356 / 356 Weight last 48 hrs Weight 90.35 kg Weight 88.564 kg Physical Exam Narrative: EXAM NARRATIVE: General exam is no apparent distress Cardiovascular regular rate and rhythm without murmur Lungs clear, no wheezing or crackles Abdomen soft with positive bowel sounds. No obvious organomegaly. Extremities no cyanosis clubbing or edema Data Micro: Micro: Microbiology 05/11/19 12:21 Urine Culture - Fi nal Urine,Clean Catch Escherichia col i 05/12/19 09:31 Blood Culture - Pr eliminary Blood NEGATIVE TO DESHAUN E 05/12/19 09:31 Blood Culture - Pr eliminary Blood NEGATIVE TO DESHAUN E A&P Assessment and plan (1) Acute pyelonephritis: Currently on Primaxin. Patient improving. Urine cultures pending. No blood cultures were drawn prior to start of antibiotic. Nausea still present. Still having back pain. Reviewed CT scan again and left hydronephrosis, h ydroureter was noted, moderate. Will have urology evaluate. Status: Acute Code(s): N10 - Acute pyelonephritis (2) Diabetes: Continue sliding scale insulin Status: Acute Code(s): E11.9 - Type 2 diabetes mellitus without complications Attestations Medical Necessity Statement*: Needs continued hospital stay for IV antibiotics related to pyelonephritis and evaluation by urology for obstructive uropathy Coding Level of Care Code Acute Relocation Counselor for [facility] [place] Diagnoses Acute pyelonephritis N10 Diabetes E11.9
[2019-05-14 15:41] VITALS: BP 118/76; PULSE 85; RESP 18; TEMP 37.3; O2SAT 92
[2019-05-14 16:42] LABS: Glucose Point of Care 204 mg/dL (70-110)
--- NOTE | 2019-05-14 17:54 | P.CONIM_ITS ---
Providers/Reason For Consult Consulting Physican/Specialty*: Urology/[place] Reason for Consult*: Left acute pyelonephritis with some concern regarding potential obstruction Requesting Physcian: Chin Attending Physician: Rafael Neely MD Primary Care Provider: Moon Mahmood History of Present Illness History of Present Illness CRISTAL DREW is a 59 year old female evaluated by me for the first time tonight at the request of Dr. Neely specifically for concern for possible obstructive pyelonephritis. She was admitted on 05/11/2019 for acute onset of symptoms suspicious for pyelonephritis. Urinalysis was consistent with UTI. CT scan showed significant perirenal inflammatory changes and there was an interpretation of hydronephrosis and hydroureter. No evidence of stone or other obstructing lesions. On admission her white count was was only 5.9 but had increased to 18.0 the following day. On antibiotic therapy her white count is decreased to 10.8 today. Creatinine was normal. While she has shown some significant improvement clinically along with her parameters of improved vital signs and lab values she stated that last night she had increased pain in her back and her lower abdomen along with seeing some gross hematuria and having dysuria. Was unaware of having passed any stone. Today she has felt better but still is quite weak and with significant malaise. Her back feels much better today though. I have carefully reviewed her CT scan and while I understand what was designated as hydronephrosis this does not appear to be an obstructed ureter and the dilation is at most minimal. It appears that the inflammatory changes are primarily related to the infectious process without any evidence of an obstructive process. On physical exam today she does not have any significant left CVA tenderness or abdominal tenderness. She denies a history of recurrent urinary tract infections or even subtle symptoms consistent with chronic cystitis on careful interview. Was not aware of any preceding lower urinary tract symptoms prior to the onset of becoming quite ill. Based on the above findings I have recommended not pursuing stenting of the ureter and that I do not think it would lead to any clinical improvement. On the other hand if there is significant evidence of progression of symptoms clinically I think repeating an imaging study with contrast looking for evidence of abscess etc. might be a reasonable next step. Review of Systems Const: Reports: fever, chills, body aches, fatigue and malaise Eyes: Denies: change in vision or yellow eyes ENMT: Denies: painful swallowing or nose bleeds Card: Denies: chest pain or palpitations Resp: Denies: shortness of breath, wheezing or pain on inspiration GI: Reports: abdominal pain and nausea; Denies: vomiting, painful bowel movements or blood in stool : Reports: flank pain, painful urination and blood in urine Musc: Reports: neck pain; Denies: deformity Skin/Breast: Denies: rash or redness Neuro: Denies: weakness in extremities Psych: Denies: anxiety, depression, panic attacks or memory loss Endo: Denies: excessive urination or flushing Clark/Lymph: Denies: easy bruising or easy bleeding All/Imm: Denies: hives Meds/Allergies Home Medications and Allergies Home Medications Medication Instructions Recorded Confirmed Type glipizide 5 mg PO BID 05/11/19 05/11/19 History metformin 1,000 mg PO BID 05/11/19 05/11/19 History Allergies Allergy/AdvReac Type Severity Reaction Status Date / Time No Known Allergies Allergy Verified 05/11/19 09:50 Current Medications Current Medications Generic Name Dose Route Start Last Admin Trade Name Freq PRN Reason Stop Dose Admin Acetaminophen 650 mg 05/11/19 17:22 05/13/19 03:18 Tylenol PO 650 mg Q6H PRN Administration Mild/Mod Pain Or Temp >/= 101 Enoxaparin Sodium 40 mg 05/11/19 18:00 05/13/19 17:55 Lovenox SUBCUT 40 mg Q24H FELIPE Administration Lactated Ringer's 1,000 mls @ 100 mls/hr 05/11/19 17:22 05/14/19 08:29 Lactated Ringers IV 125 mls/hr .Q10H FELIPE Administration Imipenem/Cilastatin Sodium 500 100 mls @ 200 mls/hr 05/12/19 10:00 05/14/19 14:35 mg/ Sodium Chloride IV 200 mls/hr Q6H FELIPE Administration Protocol Insulin Aspart 0 unit 05/11/19 18:00 05/14/19 14:35 Novolog SUBCUT 4 unit TIDWM FELIPE Administration Protocol Ondansetron HCl 4 mg 05/11/19 17:22 05/14/19 09:49 Zofran IVP 4 mg Q8H PRN Administration vomiting, or N/V if npo PFSH Acute PFSH: Statuses (acute, chronic, etc) shown below reflect problem list status as previously entered and may not be historically accurate Medical History Acute pyelonephritis (Acute) Diabetes (Acute) Surgical History History of tonsillectomy (Acute) Family History Other CAD (coronary artery disease) Social History Smoking and tobacco status: never smoked Alcohol intake: never Substance/Drug Use: never Vitals/I&O/Wt Last Vital Signs Temp 99.1 F 05/14/19 15:41 Pulse 85 05/14/19 15:41 Resp 18 05/14/19 15:41 BP 118/76 05/14/19 15:41 Pulse Ox 92 05/14/19 15:41 05/14/19 05/14/19 05/14/19 06:59 14:59 22:59 Intake Total 1240 / 2780 460 / 460 Output Total 1000 / 1000 4 / 4 Balance 240 / 1780 456 / 456 Weight last 48 hrs Weight 199 lb 3 oz Weight 195 lb 4 oz Physical Exam Const: COMMON NORMALS: no apparent distress, average body habitus and oriented x3 GENERAL APPEARANCE: cooperative, well kempt and well developed; not in distress NUTRITIONAL APPEARANCE: obese ORIENTATION/CONSCIOUSNESS: Yes awake; not confused Eye: COMMON NORMALS: no scleral icterus Neck/C-Spine: COMMON NORMALS: full ROM, no lymphadenopathy and no carotid bruits Lymph: LYMPHATIC: no lymphedema noted Resp: COMMON NORMALS: normal respiratory effort and clear to auscultation bilaterally EFFORT & INSPECTION: Yes able to speak in complete sentences and No tachypneic AUSCULTATION: clear to auscultation bilaterally : COMMON NORMALS: Yes no CVA tenderness BLADDER/KIDNEY EXAM: Yes no CVA tenderness Back/Pelvis: COMMON NORMALS: no CVA tenderness LUMBAR SPINE/LOWER BACK: No paraspinal muscle tenderness and No paraspinal muscle spasm Extremity: COMMON NORMALS: no clubbing, cyanosis or edema GENERAL: No edema Neuro: COMMON NORMALS: oriented x3, moves all extremities and no focal motor deficits SENSORIUM/ORIENTATION: No somnolent Psych: COMMON NORMALS: mental status grossly normal, cooperative and affect normal APPEARANCE: Yes well kempt ATTITUDE: Yes calm and Yes engaged Skin: COMMON NORMALS: no rashes or lesions noted and no jaundice GENERAL SKIN EXAM: no rashes or lesions noted Data Micro: Micro: Microbiology 05/11/19 12:21 Urine Culture - Fi nal Urine,Clean Catch Escherichia col i A&P Assessment and plan (1) Acute pyelonephritis: Appears to be acute pyelonephritis without evidence of obstruction after careful review of CT scan. Could not see any evidence for abscess on noncontrast CT scan but if clinical picture appears to be worsening I think it is reasonable to either repeat imaging with an ultrasound or contrasted CT scan to be sure. Status: Acute Code(s): N10 - Acute pyelonephritis (2) Diabetes: Status: Acute Code(s): E11.9 - Type 2 diabetes mellitus without complications Consult Attestations Medical Necessity Statement: See attending Coding Level of Care Code Acute Service Superintendent for [facility] History Comprehensive Exam Detailed Medical Decision Making Moderate Complexity Diagnoses Acute pyelonephritis N10 Diabetes E11.9
[2019-05-14] MEDS: docusate sodium 100 mg Capsule PO (18:57)
[2019-05-14] MEDS: enoxaparin 40 mg/0.4 mL Syringe SUBCUT (18:58)
--- NOTE | 2019-05-14 19:17 | PC.NURSE ---
Introduction of staff and report received, aidet.
[2019-05-14 19:49] VITALS: BP 130/81; PULSE 80; RESP 20; TEMP 36.9; O2SAT 94
[2019-05-14 21:37] LABS: Glucose Point of Care 181 mg/dL (70-110)
[2019-05-15] VITALS: BP 132/81; PULSE 73; RESP 20; TEMP 36.9; O2SAT 91
[2019-05-15] MEDS: lactated ringers 1,000 ML 125 ML IV (03:31)
[2019-05-15 04:00] VITALS: BP 149/80; PULSE 69; RESP 20; TEMP 36.9; O2SAT 91
[2019-05-15 06:45] LABS: Basophils % 0.3 %; Eosinophils % 0.3 %; Hematocrit 38.4 % (37.0-47.0); Hemoglobin 12.1 g/dL (11.5-15.3); Mean Corpuscular HGB Conc 31.5 g/dL (30.0-36.0); Mean Corpuscular Hemoglobin 29.2 pg (28.0-34.0); Mean Corpuscular Volume 92.8 fL (81-99); Mean Platelet Volume 11.3 fL (7.4-10.4); Monocytes # 0.7 10^3/uL (0.2-0.9); Monocytes % 9.8 %; Neutrophils # 5.5 10^3/uL (1.8-7.7); Neutrophils % 74.8 %; Nucleated Red Blood Cells % 0 %; Platelet Count 142 10^3/cmm (130-400); Red Blood Count 4.14 10^6/uL (4.1-5.3); Red Cell Distribution Width 13.7 % (12.1-15.1); White Blood Count 7.3 10^3/uL (4.0-10.0)
[2019-05-15 06:46] LABS: Glucose Point of Care 176 mg/dL (70-110)
[2019-05-15 06:50] LABS: Anion Gap 13.7 (5-19); Blood Urea Nitrogen 12 mg/dL (6-20); Calcium 9.4 mg/Dl (8.6-10.0); Carbon Dioxide 25 mmol/L (22-29); Chloride 108 mmol/L (98-107); Glomerular Filtration Rate 73.9 mL/min (90-130); Glucose 191 mg/dL (74-109); Potassium 3.7 mmol/L (3.5-5.1); Sodium 143 mmol/L (136-145)
[2019-05-15 07:47] VITALS: BP 161/99; PULSE 70; RESP 18; TEMP 37.1; O2SAT 91
[2019-05-15] MEDS: docusate sodium 100 mg Capsule PO (09:10)
[2019-05-15 11:32] VITALS: BP 156/98; PULSE 79; RESP 18; TEMP 36.7; O2SAT 91
--- NOTE | 2019-05-15 11:39 | P.DS_ITS ---
Discharge Providers Date of Admission: 05/11/19 16:10 Date of Discharge: 05/15/19 Attending Provider at Admission: Lavon Martinez MD Attending Provider at Discharge: Rafael Neely MD Primary Care Provider: Moon Mahmood PRECISION STRUCTURAL METAL FITTER Diagnoses at Discharge Discharge Diagnosis (1) Acute pyelonephritis: Status: Acute Problem details: Significantly improved (2) Diabetes: Status: Acute Problem details: Stable Reason for Visit 2 Reason for Visit: Reason For Visit: pydoneephtitis;dm Hospital Course Hospital Course: Ivonne presented to the hospital with back pain, nausea, and urine in the emergency department consistent with urinary tract infection. Further evaluation by CT scan suggested pyelonephritis on the left with possible moderate hydronephrosis. She was placed in the hospital on IV antibiotics, ultimately Primaxin, and followed closely. Over the course of her hospital stay her leukocytosis improved. She was afebrile. Nausea improved. Urology did evaluate the patient and did not believe significant hydronephrosis was present at this time, her history being more consistent with pyelonephritis. By December 13 she was doing much better and it was thought she could be discharged home. Urine culture ultimately grew E. coli, sensitive to fluoroquinolones. Physical Exam Narrative: EXAM NARRATIVE: General exam no apparent distress Cardiovascular regular rate and rhythm without murmur Lungs clear Abdomen is soft with positive bowel sounds Extremities no cyanosis clubbing or edema Discharge Data Data Completed and Pending: Completed Studies During Hospitalization Category Date Time Status CT kidney stone 7 4176 Stat Cat Scan 05/11/19 13:08 Completed Pending at discharge Category Date Time Status Blood Culture Sta t Lab 05/12/19 09:31 Results Labs from last 24 hours 05/15/19 05/15/19 05/15/19 06:33 05:35 05:35 WBC 7.3 RBC 4.14 Hgb 12.1 Hct 38.4 MCV 92.8 MCH 29.2 MCHC 31.5 RDW 13.7 Plt Count 142 MPV 11.3 H Neut % (Auto) 74.8 Lymph % (Auto) 14.0 [place] % (Auto) 9.8 Eos % (Auto) 0.3 Baso % (Auto) 0.3 Neut # (Auto) 5.5 Lymph # (Auto) 1.0 [place] # (Auto) 0.7 Eos # (Auto) 0.0 Baso # (Auto) 0.0 Nucleated RBC % (a uto) 0 Nucleated RBCs # 0.0 Sodium 143 Potassium 3.7 Chloride 108 H Carbon Dioxide 25 Anion Gap 13.7 BUN 12 Creatinine 0.8 GFR Calculation 73.9 L Glucose 191 H POC Glucose 176 Calcium 9.4 05/14/19 05/14/19 05/14/19 21:16 16:35 11:43 WBC RBC Hgb Hct MCV MCH MCHC RDW Plt Count MPV Neut % (Auto) Lymph % (Auto) [place] % (Auto) Eos % (Auto) Baso % (Auto) Neut # (Auto) Lymph # (Auto) [place] # (Auto) Eos # (Auto) Baso # (Auto) Nucleated RBC % (a uto) Nucleated RBCs # Sodium Potassium Chloride Carbon Dioxide Anion Gap BUN Creatinine GFR Calculation Glucose POC Glucose 181 204 147 Calcium Vitals: Last Vital Signs Temp 98.0 F 05/15/19 11:32 Pulse 79 05/15/19 11:32 Resp 18 05/15/19 11:32 BP 156/98 05/15/19 11:32 Pulse Ox 91 05/15/19 11:32 Discharge Plan Discharge Patient Disposition: Home, Self-Care Condition: Stable Prescriptions: New hydrocodone-acetaminophen 5-325 mg Tablet 1 tab PO Q4H PRN (Reason: Moderate Pain) Qty: 15 RF: 0 ciprofloxacin HCl 500 mg tablet 500 mg PO BID Qty: 20 RF: 0 Continued metformin 1,000 mg Tablet 1,000 mg PO BID RF: 0 glipizide 5 mg tablet 5 mg PO BID RF: 0 Discharge Orders: Discharge Order (Routine); Ordered 05/15/19 Ordered By: Rafael Neely Referrals: Moon Mahmood FNP [Primary Care Provider] - 4-7 days Ward Ngo MD [Physician] - 2 weeks Discharge Diet: Diabetic Discharge Activity: Resume usual activity Activity Restrictions/Additional Instructions: Take all medicine as prescribed. Return for any concerns. Keep follow-up with urology. Discharge Attestations Time Spent in Discharge Care*: greater than 30 min Quality Metrics Clinical Quality Measures During this hospital stay, did patient experience: None Coding Level of Care Code Acute Medication Coordinator for Coy Fwsydnee Diagnoses Acute pyelonephritis N10 Diabetes E11.9
[2019-05-15 12:07] LABS: Glucose Point of Care 125 mg/dL (70-110)
[2019-05-15] MEDS: lactated ringers 1,000 ML 100 ML IV (14:03)
[2019-05-15 15:37] VITALS: BP 162/92; PULSE 80; RESP 18; TEMP 37.1; O2SAT 92
[2019-05-15 16:06] VITALS: RESP 18; TEMP 37.1; O2SAT 92
== END 2019-05-15 16:08 | disposition home or self-care (01) | DRG 690 ==
LOC: ER 16:55 → MEDSURG 17:10
PROVIDERS: Admitting Provider Family Medicine; Emergency Provider Family Medicine; PCP Nurse Practitioner Family; Visit Provider Internal Medicine
DX: N10 Acute pyelonephritis (principal); K86.2 Cyst of pancreas; E11.9 Type 2 diabetes mellitus without complications; B96.20 Unspecified Escherichia coli [E. coli] as the cause of diseases classified elsewhere; Z79.4 Long term (current) use of insulin; Z79.84 Long term (current) use of oral hypoglycemic drugs
CPT/HCPCS: 12345; 36415; 36416; 74176; 80048; 80053; 81003; 82962; 83735; 84100; 84145; 84484; 85007; 85025; 87040; 87077; 87086; 87186; 87804; 93005; 96372; 96374; 96375; 97110; 97161; 99284; J0696; J0743; J1650; J1815; J2270; J2405; J7030; J7050

== ENCOUNTER → 2019-05-29 16:30 | Outpatient (BNVA) | payer BC, SELFPAY | PROVIDERS: PCP Nurse Practitioner Family; Visit Provider Urology | DX: N12 Tubulo-interstitial nephritis, not specified as acute or chronic (principal); N30.90 Cystitis, unspecified without hematuria | CPT/HCPCS: 81001; 87086 ==

== ENCOUNTER → 2019-07-09 10:42 | Outpatient (BNVA) | payer BC, SELFPAY | PROVIDERS: PCP Nurse Practitioner Family; Visit Provider Urology | DX: N30.20 Other chronic cystitis without hematuria (principal) | CPT/HCPCS: 81001 ==

== ENCOUNTER → 2019-12-09 10:02 | Outpatient (BNVA) | payer BC, SELFPAY | PROVIDERS: PCP Internal Medicine; Visit Provider Urology | DX: N30.20 Other chronic cystitis without hematuria (principal) | CPT/HCPCS: 81001 ==

== ENCOUNTER 2025-03-13 16:01 | Outpatient (CLI) | payer MEDICAID, SELFPAY ==
[2025-03-13 17:20] LABS: Hematocrit 35.8 % (36-47); Hemoglobin 11.20 g/dL (11.27-16.99); Mean Corpuscular HGB Conc 31.3 g/dL (30-55); Mean Corpuscular Hemoglobin 28.5 pg (27-33); Mean Corpuscular Volume 91.1 fl (85-98); Nucleated Red Blood Cells % 0 %; Platelet Count 715 10^3/cmm (157-399); Red Blood Count 3.93 10^6/uL (3.85-5.65); White Blood Count 14.01 10^3/uL (3.29-11.43)
[2025-03-13 18:19] LABS: Estmated Average Glucose 189; Hemoglobin A1C 8.2 % (4.0-6.0)
[2025-03-13 18:25] LABS: Lactate (Lactic Acid level) 1.5 mmol/L (0.5-2.2)
[2025-03-13 20:33] LABS: Alanine Aminotransferase 14 U/L (0-33); Albumin Level 3.0 g/dL (3.5-5.2); Alkaline Phosphatase 93 U/L (35-105); Anion Gap 20.3 (5-19); Aspartate Amino Transferase 17 U/L (0-32); Blood Urea Nitrogen 16 mg/dL (8-23); Calcium 8.9 mg/dL (8.5-10.5); Carbon Dioxide 21 mmol/L (22-29); Chloride 101 mmol/L (98-107); Cholesterol 121 mg/dL (0-200); Ferritin 627 ng/mL (15-150); Globulin 3.8 g/dL (1.3-4.6); Glucose 165 mg/dL (65-115); HDL Cholesterol 29 mg/dL (60-100); Osmolality Calculated 291 mOsm/kg (285-295); Potassium 4.3 mmol/L (3.5-5.1); Sodium 138 mmol/L (136-145); Thyroid Stimulating Hormone 2.50 uIU/mL (0.27-4.20); Total Protein 6.8 g/dL (6.6-8.7); Triglycerides 162 mg/dL (0-150)
[2025-03-13 20:44] LABS: CRP High Sensitivity Cardiac 21.000 mg/dL (0.0-0.3)
[2025-03-13 22:54] LABS: Free T4 Free Thyroxine 0.89 ng/dL (0.82-1.77)
== END 2025-03-13 16:02 | disposition home or self-care (01) ==
PROVIDERS: PCP Internal Medicine; Visit Provider Nurse Practitioner Family
DX: R69 Illness, unspecified (principal); Z87.898 Personal history of other specified conditions; E63.9 Nutritional deficiency, unspecified
CPT/HCPCS: 36415; 80053; 80061; 82306; 82728; 83036; 83090; 83605; 84436; 84439; 84443; 84479; 84481; 84482; 85025; 86141; 86337; 86376

== ENCOUNTER 2025-03-16 14:07 | Emergency (ER) | payer MEDICAID, SELFPAY ==
[2025-03-16 14:10] VITALS: BP 114/60; PULSE 116; TEMP 36.7; O2SAT 96; BMI 21.7
--- OUTSIDE RECORDS SUMMARY | 2025-03-16 14:13 | XMS_ITS | Encounter Summary ---
Author Organization [facility] Address [address] [place] [address] Care Team Providers Care Director Of Home Health Services Name Role Phone Unavailable Primary Care Provider Unavailabl e Encounter Details Date Type Department Care Team (Latest Contact Info) Description 10/12/2001 Outpatient Historical [facility] [address], [place] [phone] Rubén Frey MD [address] [place] [phone] IMPACTED CERUMEN (Primary Dx) Social History Tobacco Use Types Packs/Day Years Used Date Smoking Tobacco: Never Assessed Comments Unknown Sex and Gender Information Value Date Recorded Sex Assigned at Not on file 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
--- OUTSIDE RECORDS SUMMARY | 2025-03-16 14:13 | XMS_ITS | Clinical Summary ---
Author Organization [facility] Address [address] 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
--- OUTSIDE RECORDS SUMMARY | 2025-03-16 14:13 | XMS_ITS | Clinical Summary ---
Author Organization [facility] Address [address] [address] Care Team Providers Care Car Salesperson Name Role Phone Evans Fernandez MD Primary Care Provider [phone] Allergies No known active allergies Medications glipiZIDE (GLUCOTROL) 10 mg tabletIndication s:Type 2 diabetes mellitus without complication, without long-term current use of insulin ([facility]) TAKE ONE TABLET BY MOUTH TWICE DAILY 60 Tablet 01/13/2025 Active metFORMIN (GLUCOPHAGE) 1,000 mg tabletIndication s:Type 2 diabetes mellitus without complication, without long-term current use of insulin ([facility]/HCC) TAKE ONE TABLET BY MOUTH TWICE DAILY 60 Tablet 01/13/2025 Active Active Problems Problem Noted Date Diagnosed Date Type 2 diabetes mellitus without complication Encounters Date Type Department Care Team Description 02/26/2025 Orders Only [facility] [address] [phone] Evans Fernandez MD Type 2 diabetes mellitus without complication, without long-term current use of insulin 01/22/2025 Orders Only [facility] [address] [phone] Evans Fernandez MD Type 2 diabetes mellitus without complication, without long-term current use of insulin (CMS/HCC) 01/14/2025 External Device Data STL ABSTRACTION Provider, Abstract 01/14/2025 External Device Data STL ABSTRACTION Provider, Abstract 01/10/2025 Refill [facility] [address] [phone] Nicci Camacho FNP Type 2 diabetes mellitus without complication, without long-term current use of insulin ([facility]) 01/07/2025 External Device Data [facility] ABSTRACTION Provider, Abstract 01/03/[address] [phone] Nicci Camacho, COIL STRAPPER Type 2 diabetes mellitus without complication, without long-term current use of insulin ([facility]) 12/17/2024 External Device Data STL ABSTRACTION Provider, Abstract from Last 3 Months Family History Medical History Relation Name Comments No Known Problems Brother 1 Diabetes Father Arthritis Mother No Known Problems Sister 1 Relation Name Status Comments Brother 1 Alive Father Alive Mother Alive Sister 1 Alive Social History Tobacco Use Types Packs/Day Years Used Date Smoking Tobacco: Former Cigarettes Q uit: 1984 Smokeless Tobacco: Never Tobacco Cessation:Counseling Given: Not Answered Alcohol Use Standard Drinks/Week Comments Not Currently 0 (1 standard drink = 0.6 oz pur e alcohol) Comments No Sex and Gender Information Value Date Recorded Sex Assigned at Not on file Legal Sex Female 7:21 AM PICTURE HANGER Gender Identity Not on file Sexual Orientation Not on file Last Filed Vital Signs Vital Sign Reading Time Taken Comments Blood Pressure 160/100 10/31/2023 1:26 PM CDT Pulse 136 10/31/2023 1:23 PM CDT Temperature 37.1 C (98.7 F) 10/31/2023 1:23 PM CDT Respiratory Rate 18 10/31/2023 1:23 PM CDT Oxygen Saturation 95% 10/31/2023 1:23 PM CDT Inhaled Oxygen Concentration - - Weight 76.9 kg (169 lb 9.6 oz) 10/31/2023 1:23 P M CDT Height 170.2 cm (5' 7 ) 10/31/2023 1:23 PM CDT Body Mass Index 26.56 10/31/2023 1:23 PM CDT Plan of Treatment Health Maintenance Due Date Last Done Comments DIABETES ANNUAL FOOT EXAM 1980 DIABETES ANNUAL RETINAL EXAM 1980 DIABETES MICROALBUMIN ANNUAL SCREEN 1980 DTAP/TDAP/TD VACCINES (1 - Tdap) 1981 HPV/Cotest (21-29) 1983 CERVICAL CANCER SCREENING 1992 HPV/Cotest (30-65) 1992 PAP SMEAR 1992 BREAST CANCER SCREENING 2002 COLORECTAL SCREENING 2007 Colorectal Cancer Screening 2007 FIT-DNA Q 3 years 2007 FIT/FOBT Q 1 year 2007 Flex Sig/CT Colonography Q 5 years 2007 ZOSTER VACCINE (1 of 2) 2012 DIABETES: A1C (Auto Order) 02/15/2024 11/15/2023, DIABETES HBA1C Q 6 MONTHS 05/17/2024 11/15/2023, 10/2022 LDL CHOLESTEROL ANNUAL 11/14/2024 11/15/2023 INFLUENZA VACCINE (#1) 2024 RSV VACCINE (60+ or ) (1 - 1-dose 75+ series) 2037 Procedures Procedure Name Priority Date/Time Associated Diagnosis Comments LIPID PANEL Routine 11/15/2023 12:00 AM CDT Type 2 diabetes mellitus without complication, unspecified whether snf insulin use (CMS/[facility]) HEMOGLOBIN A1C Routine 11/15/2023 12:00 AM CDT Type 2 diabetes mellitus without complication, unspecified whether exterminator termite insulin use ([facility]) from Last 3 Months or Most Recently Relevant to Health Maintenance Results * HEMOGLOBIN A1C (11/15/2023 12:00 AM CDT) ABSTRACTED HGB A1C 9.8 % EXTERNAL LAB Blood 11/15/2023 Nicci PARRP CHEMISTRY ORDERABLES Marni l Result EXTERNAL LAB * LIPID PANEL (11/15/2023 12:00 AM CDT) ABSTRACTED CHOLESTEROL 208 EXTERNAL LAB ABSTRACTED TRIGLYCERIDE 222 EXTERNAL LAB ABSTRACTED HDL 48 EXTERNAL LAB ABSTRACTED LDL CALCULATED 121 EXTERNAL LAB Blood 11/15/2023 us Nicci Mae Janice COIL STRAPPER CHEMISTRY ORDERABLES Marni yañez Result EXTERNAL LAB from Last 3 Months or Most Recently Relevant to Health Maintenance Care Teams Car Salesperson Relationship Specialty Start Date End Date Evans Fernandez MD [address] [place] [phone] PCP - General Family Practice 10/31/23
--- OUTSIDE RECORDS SUMMARY | 2025-03-16 14:13 | XMS_ITS | Encounter Summary ---
Author Organization [facility] Address [address] [place] [address] Care Team Providers Care Network Pricing Consultant Name Role Phone Unavailable Primary Care Provider Unavailabl e Encounter Details Date Type Department Care Team (Latest Contact Info) Description 12/22/2000 Outpatient Historical [facility] [address] [phone] Pinky Bravo MD [address] [place] [phone] Dysmenorrhea (Primary Dx); Excessive menstruation Social History Tobacco Use Types Packs/Day Years Used Date Smoking Tobacco: Never Assessed Comments Unknown Sex and Gender Information Value Date Recorded Sex Assigned at Not on file Legal Sex 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
--- OUTSIDE RECORDS SUMMARY | 2025-03-16 14:13 | XMS_ITS | Encounter Summary ---
Author Organization [facility] Address [address] [place] [address] Care Team Providers Care Pharmacy Technician Instructor Name Role Phone Unavailable Primary Care Provider Unavailabl e Encounter Details Date Type Department Care Team (Latest Contact Info) Description 02/12/2001 Outpatient Historical [facility] [place] [address] [phone] Pinky Bravo MD [address] [place] [phone] Excessive menstruation (Primary Dx) Social History Tobacco Use Types Packs/Day Years Used Date Smoking Tobacco: Never Assessed Comments Unknown Sex and Gender Information Value Date Recorded Sex Assigned at Not on file Legal Sex Female 4:25 AM SUBJECT SCIENTIFIC RESEARCH Gender Identity Not on file Sexual Orientation Not on file documented as of this encounter Plan of Treatment Not on file documented as of this encounter Visit Diagnoses Diagnosis Excessive menstruation- Primary Excessive or frequent menstruation documented in this encounter
[2025-03-16 14:53] LABS: Glucose Urine UA Negative (Normal); Nitrate Urine Positive (Negative); Specific Gravity, Urine 1.023 (1.005-1.030)
[2025-03-16 14:59] LABS: Add Urine Microscopic? YES
[2025-03-16 15:02] LABS: UA Slide Review UA Slide Review Perf
[2025-03-16 15:08] LABS: Hematocrit 35.0 % (36-47); Hemoglobin 10.90 g/dL (11.27-16.99); Mean Corpuscular HGB Conc 31.1 g/dL (30-55); Mean Corpuscular Hemoglobin 28.8 pg (27-33); Mean Corpuscular Volume 92.6 fl (85-98); Nucleated Red Blood Cells % 0 %; Platelet Count 593 10^3/cmm (157-399); Red Blood Count 3.78 10^6/uL (3.85-5.65); White Blood Count 14.98 10^3/uL (3.29-11.43)
--- NOTE | 2025-03-16 15:09 | ED_ITS ---
HPI - Female Genitourinary 2 General: Chief complaint: Urogenital-Female Stated complaint: Lower back pain swellon ankles and tired Time Seen by Provider: 03/16/25 14:40 History of Present Illness: Patient is a 65-year-old female with DM, presents to ED with worsening dysuria, frequent urination x 1 day. She has a history of UTIs. Recently saw her doctor for routine appointment for her diabetes mellitus. No other reason was her labs done. This started mainly this morning. No fevers. No change in stool. No nausea or vomiting. Mild back pain. Associated symptoms: Deny abdominal pain or headache(s) Related Data Home Medications ?Medication ?Instructions ?Recorded ?Confirmed metformin 1,000 mg tablet 1,000 mg PO BID 05/29/1902/17 dulaglutide 0.75 mg/0.5 mL SUBCUT 12/09/19 12/09/19 subcutaneous pen injector (Trulicity) Previous Rx's ?Medication ?Instructions ?Recorded nitrofurantoin 100 mg PO BID #60 caps 12/08 monohydrate/macrocrystals 100 mg capsule (Macrobid) cefdinir 300 mg capsule 300 mg PO BID 10 days #20 ca ps 03/16/25 Allergies Allergy/AdvReac Type Severity Reaction Status Date / Time No Known Allergies Allergy Verified 03/16/25 14:17 Review of Systems 2 General: Reports: 10 or more systems reviewed and unremarkable except in HPI and below Const: Denies: fever(s), chills or fatigue Eyes: Denies: change in vision ENMT: Denies: change in hearing Card: Denies: chest pain Resp: Denies: dyspnea, productive cough or non-productive cough GI: Denies: abdominal pain or constipation : Reports: flank pain (occasional), dysuria, urinary frequency, urinary urgency and urinary hesitancy; Denies: difficulty voiding Musc: Denies: neck pain or back pain Neuro: Denies: headache(s) or numbness in extremities Psych: Denies: anxiety or depression Clark/Lymph: Denies: easy bruising or easy bleeding PFS ED 2 PFSH: Medical History (Updated 03/16/25 @ 15:19 by NESHA Nolasco) Chronic cystitis Pyelonephritis Acute pyelonephritis Significantly improved Diabetes Stable Surgical History History of wisdom tooth extraction Family History Mother Arthritis Father Diabetes Skin cancer Other CAD (coronary artery disease) Social History Smoking and tobacco/nicotine status: never used tobacco/nicotine Alcohol intake: never Substance/Drug Use: unknown Adopted: No Caregiver/support person: No Marital status: Current occupational status: employed Physical Exam 2 Const: COMMON NORMALS: no acute distress, alert and well nourished GENERAL APPEARANCE: well kempt and well developed ORIENTATION/CONSCIOUSNESS: not confused HENMT: COMMON NORMALS: normocephalic and atraumatic HEAD & SCALP: n ormocephalic and atraumatic Eye: COMMON NORMALS: no scleral icterus Neck/C-Spine: GENERAL: Yes normal visual inspection Resp: COMMON NORMALS: normal respiratory effort EFFORT & INSPECTION: No labored and No Actively coughing : COMMON NORMALS: Yes no CVA tenderness BLADDER/KIDNEY EXAM: Yes no CVA tenderness Back/Pelvis: COMMON NORMALS: no CVA tenderness Extremity: OTHER: Normal Gait Neuro: COMMON NORMALS: no focal motor deficits SENSORIUM/ORIENTATION: Yes alert Psych: COMMON NORMALS: mental status grossly normal APPEARANCE: Yes well kempt ATTITUDE: Yes calm and Yes engaged Course 2 Vital Signs: Vital signs: Vital Signs Temperature 98.0 F 03/16/25 14:10 Pulse Rate 116 H 03/16/25 14:10 Blood Pressure 114/60 03/16/25 14:10 Pulse Oximetry 96 03/16/25 14:10 Oxygen Delivery Me thod Room Air 03/16/25 14:10 MDM - Female Medical Decision Making Patient exam is benign. No red flags. No tachycardia on auscultation of cardiac tones. No CVA tenderness. Most likely this is a straightforward UTI. She does have association leukocytosis. I have discussed dehydration as well and encouraged to increase the noncaffeinated beverages. Her son's questions answered. He will bring her back to the emergency room if she has any change in her condition, confusion, she is to return to the ED. She does not have sepsis, this is unfounded. Tachycardia appears to have resolved with her anxiety. Medical Records I reviewed the patient's medical records. Lab Data I reviewed the patient's lab results. 03/16/25 14:57 03/16/25 14:57 Laboratory Results WBC 14.98 10^3/uL (3.29-11.43) H 03/16/25 14:57 RBC 3.78 10^6/uL (3.85-5.65) L 03/16/25 14:57 Hgb 10.90 g/dL (11.27-16.99) L 03/16/25 14:57 Hct 35.0 % (36-47) L 03/16/25 14:57 MCV 92.6 fl (85-98) 03/16/25 14:57 MCH 28.8 pg (27-33) 03/16/25 14:57 MCHC 31.1 g/dL (30-55) 03/16/25 14:57 RDW 15.6 % (12.1-15.1) H 03/16/25 14:57 Plt Count 593 10^3/cmm (157-399) H 03/16/25 14:57 MPV 9.1 fL (7.4-10.4) 03/16/25 14:57 Neut % (Auto) 79.3 % 03/16/25 14:57 Lymph % (Auto) 11.3 % 03/16/25 14:57 [place] % (Auto) 7.4 % 03/16/25 14:57 Eos % (Auto) 0.1 % 03/16/25 14:57 Baso % (Auto) 0.5 % 03/16/25 14:57 Neut # (Auto) 11.87 10^3/uL (1.8-7.7) H 03/16/25 14:57 Lymph # (Auto) 1.7 10^3/uL (0.8-4.8) 03/16/25 14:57 [place] # (Auto) 1.1 10^3/uL (0.2-0.9) H 03/16/25 14:57 Eos # (Auto) 0.0 10^3/uL (0.0-0.8) 03/16/25 14:57 Baso # (Auto) 0.1 10^3/uL (0.0-0.1) 03/16/25 14:57 Nucleated RBC % (auto) 0 % 03/16/25 14:57 Nucleated RBCs # 0.0 /100WBC 03/16/25 14:57 Sodium 135 mmol/L (136-145) L 03/16/25 14:57 Potassium 4.6 mmol/L (3.5-5.1) 03/16/25 14:57 Chloride 101 mmol/L (98-107) 03/16/25 14:57 Carbon Dioxide 23 mmol/L (22-29) 03/16/25 14:57 Anion Gap 15.6 (5-19) 03/16/25 14:57 BUN 13 mg/dL (8-23) 03/16/25 14:57 Creatinine 0.5 mg/dL (0.5-0.9) 03/16/25 14:57 GFR Calculation 124.6 mL/min (90-130) 03/16/25 14:57 Glucose 154 mg/dL (65-115) H 03/16/25 14:57 Calculated Osmolality 283 mOsm/kg (285-295) L 03/16/25 14:57 Calcium 9.0 mg/dL (8.5-10.5) 03/16/25 14:57 Total Bilirubin 0.4 mg/dL (0.15-1.2) 03/16/25 14:57 AST 12 U/L (0-32) 03/16/25 14:57 ALT 13 U/L (0-33) 03/16/25 14:57 Alkaline Phosphatase 92 U/L (35-105) 03/16/25 14:57 Total Protein 6.6 g/dL (6.6-8.7) 03/16/25 14:57 Albumin 2.7 g/dL (3.5-5.2) L 03/16/25 14:57 Globulin 3.9 g/dL (1.3-4.6) 03/16/25 14:57 Lipase 33 U/L (13-60) 03/16/25 14:57 Urine Color Dark yellow (Yellow) A 03/16/25 14:45 Urine Appearance Turbid (CLEAR) A 03/16/25 14:45 Urine pH 5.5 (5-7) 03/16/25 14:45 Ur Specific [place] 1.023 (1.005-1.030) 03/16/25 14:45 Urine Protein 1+ (Negative) A 03/16/25 14:45 Urine Glucose (UA) Negative (Normal) 03/16/25 14:45 Urine Ketones Negative (Negative) 03/16/25 14:45 Urine Blood Trace (Negative) A 03/16/25 14:45 Urine Nitrate Positive (Negative) A 03/16/25 14:45 Urine Bilirubin Negative (Negative) 03/16/25 14:45 Urine Urobilinogen 0.2 mg/dL (Negative) 03/16/25 14:45 Ur Leukocyte Esterase 3+ (Negative) A 03/16/25 14:45 Urine RBC 3-5 /hpf (0-2) 03/16/25 14:45 Urine WBC >100 /hpf (0-5) H 03/16/25 14:45 Ur Squamous Epith Cells 0-5 /hpf (0-5) 03/16/25 14:45 Amorphous Sediment Not Reportable 03/16/25 14:45 Urine Bacteria 4+ /hpf (NONE) H 03/16/25 14:45 Hyaline Casts 2.46 /lpf 03/16/25 14:45 No radiology studies performed this visit Discharge Plan Discharge Patient Disposition: Home Clinical Impression: Pyuria Condition: Stable Prescriptions: New cefdinir 300 mg capsule 300 mg PO BID 10 Days Qty: 20 0RF No Action Trulicity 0.75 mg/0.5 mL pen injector SUBCUT nitrofurantoin monohyd/m-cryst [Macrobid] 100 mg capsule 100 mg PO BID Qty: 60 4RF Rx Instructions: must administer with a meal/food metformin 1,000 mg tablet 1,000 mg PO BID Discharge Orders: Discharge ED (Routine); Ordered 03/16/25 Ordered By: Kathryn Fernandez Referrals: Delfina Arzola [Primary Care Provider, Wound Care] Discharge Diet: Diabetic and Low Salt Patient Instructions: Urinary Tract Infection in Older Adults (ED), Patient Portal & Chevy Instructions Activity Restrictions/Additional Instructions: -+ Urine cultures pending. - Take antibiotics as prescribed. Utilize probiotic or active culture yogurt to avoid infectious diarrhea -Drink plenty of water - Follow-up with your doctor this week. They may want to refer you to the urologist. Thank you for choosing [facility] for your healthcare needs today. You have been screened and evaluated and felt safe for discharge. Health conditions do change or evolve sometimes and as such it is important that you follow up with your Primary Doctor to be re checked, 3-5 days is a general good time frame for follow up. You are always welcome to return to the ED for re assessment if your symptoms are worsening or you have new concerns Print Language: Citizen Of The [place] Coding Level of Care Code ED Canvas Cutter Machine for Coy Aden
[2025-03-16 15:27] LABS: Alanine Aminotransferase 13 U/L (0-33); Albumin Level 2.7 g/dL (3.5-5.2); Alkaline Phosphatase 92 U/L (35-105); Anion Gap 15.6 (5-19); Aspartate Amino Transferase 12 U/L (0-32); Blood Urea Nitrogen 13 mg/dL (8-23); Calcium 9.0 mg/dL (8.5-10.5); Carbon Dioxide 23 mmol/L (22-29); Chloride 101 mmol/L (98-107); Globulin 3.9 g/dL (1.3-4.6); Glucose 154 mg/dL (65-115); Lipase 33 U/L (13-60); Osmolality Calculated 283 mOsm/kg (285-295); Potassium 4.6 mmol/L (3.5-5.1); Sodium 135 mmol/L (136-145); Total Protein 6.6 g/dL (6.6-8.7)
[2025-03-16] MEDS: cefTRIAXone 1,000 MG in water for injection-sterile 2.1 ML 2.1 MG IM (16:00)
== END 2025-03-16 16:00 | disposition home or self-care (01) ==
PROVIDERS: Emergency Medicine; Emergency Provider Physician Assistant; PCP Nurse Practitioner Family
DX: R82.81 Pyuria (principal); Z79.84 Long term (current) use of oral hypoglycemic drugs; Z79.85 Long-term (current) use of injectable non-insulin antidiabetic drugs; E11.9 Type 2 diabetes mellitus without complications
CPT/HCPCS: 36415; 80053; 81001; 83690; 85025; 87077; 87086; 87186; 96372; 99284; J0696; J9999

== ENCOUNTER 2025-04-26 12:08 | Emergency (ER) | payer MEDICAID, SELFPAY ==
[2025-04-26] VITALS (7 sets, daily range): BP systolic 106–140; BP diastolic 73–85; PULSE 90–128; RESP 16–18; TEMP 36.4; O2SAT 91–98; BMI 21.9
--- OUTSIDE RECORDS SUMMARY | 2025-04-26 12:12 | XMS_ITS | Encounter Summary ---
Author Organization [facility] Address [address] [place] [address] Care Team Providers Care Digital Marketing Analyst Name Role Phone Evans Fernandez MD Primary Care Provider [phone] Encounter Details Date Type Department Care Team (Late st Contact Info) Description 04/22/2025 External Device Data [facility] ABSTRACTION Provider, Abstract NO ADDRESS ON FILE Social History Tobacco Use Types Packs/Day Years Used Date Smoking Tobacco: Former Cigarettes 0 Q uit: 1984 Smokeless Tobacco: Never Alcohol Use Standard Drinks/Week Comments Not Currently 0 (1 standard drink = 0.6 oz pur e alcohol) Comments No Sex and Gender Information Value Date Recorded Sex Assigned at Not on file 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
--- OUTSIDE RECORDS SUMMARY | 2025-04-26 12:12 | XMS_ITS | Clinical Summary ---
Author Organization [employer] [facility] Address [address] 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
--- OUTSIDE RECORDS SUMMARY | 2025-04-26 12:12 | XMS_ITS | Encounter Summary ---
Author Organization [facility] Address [address] [place] [address] Care Team Providers Care Tractor Distributor Name Role Phone Unavailable Primary Care Provider Unavailabl e Encounter Details Date Type Department Care Team (Latest Contact Info) Description 02/12/2001 Outpatient Historical [facility] [place] [address] [phone] Pinky Bravo MD [address] [place] [phone] Excessive menstruation (Primary Dx) Social History Tobacco Use Types Packs/Day Years Used Date Smoking Tobacco: Never Assessed Comments Unknown Sex and Gender Information Value Date Recorded Sex Assigned at Not on file Legal Sex Female 4:25 AM DERRICK BOAT LEVER OPERATOR Gender Identity Not on file Sexual Orientation Not on file documented as of this encounter Plan of Treatment Not on file documented as of this encounter Visit Diagnoses Diagnosis Excessive menstruation- Primary Excessive or frequent menstruation documented in this encounter
--- OUTSIDE RECORDS SUMMARY | 2025-04-26 12:12 | XMS_ITS | Encounter Summary ---
Author Organization [facility] Address [address] [place] [address] Care Team Providers Care Chemical Processing Laborer Name Role Phone Unavailable Primary Care Provider Unavailabl e Encounter Details Date Type Department Care Team (Latest Contact Info) Description 10/12/2001 Outpatient Historical [facility] [address] [phone] Rubén Frey MD [address] [place] [phone] IMPACTED CERUMEN (Primary Dx) Social History Tobacco Use Types Packs/Day Years Used Date Smoking Tobacco: Never Assessed Comments Unknown Sex and Gender Information Value Date Recorded Sex Assigned at Not on file Legal Sex Female 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
--- OUTSIDE RECORDS SUMMARY | 2025-04-26 12:12 | XMS_ITS | Clinical Summary ---
Author Organization [facility] Address [address] [phone] Care Team Providers Care Duplex Trimmer Name Role Phone Evans Fernandez MD Primary Care Provider [phone] Allergies No known active allergies Medications glipiZIDE (GLUCOTROL) 10 mg tabletIndication s:Type 2 diabetes mellitus without complication, without long-term current use of insulin ([facility]) TAKE ONE TABLET BY MOUTH TWICE DAILY 60 Tablet 01/13/2025 Active metFORMIN (GLUCOPHAGE) 1,000 mg tabletIndication s:Type 2 diabetes mellitus without complication, without long-term current use of insulin (CMS/HCC) TAKE ONE TABLET BY MOUTH TWICE DAILY 60 Tablet 01/13/2025 Active Active Problems Problem Noted Date Diagnosed Date Type 2 diabetes mellitus without complication Encounters Date Type Department Care Team Description 04/22/2025 External Device Data [facility] ABSTRACTION Provider, Abstract 04/09/2025 Orders Only [facility] [address] [phone] Evans Fernandez MD Type 2 diabetes mellitus without complication, without long-term current use of insulin (CMS/HCC) 03/25/2025 External Device Data [facility] ABSTRACTION Provider, Abstract 03/18/2025 External Device Data [facility] ABSTRACTION Provider, Abstract 02/26/2025 Orders Only [facility] [address] [phone] Evans Fernandez MD Type 2 diabetes mellitus without complication, without long-term current use of insulin from Last 3 Months Family History Medical History Relation Name Comments No Known Problems Brother 1 Diabetes Father Arthritis Mother No Known Problems Sister 1 Relation Name Status Comments Brother 1 Alive Father Alive Mother Alive Sister 1 Alive Social History Tobacco Use Types Packs/Day Years Used Date Smoking Tobacco: Former Cigarettes 0 Q uit: 1984 Smokeless Tobacco: Never Tobacco Cessation:Counseling Given: Not Answered Alcohol Use Standard Drinks/Week Comments Not Currently 0 (1 standard drink = 0.6 oz pur e alcohol) Comments No Sex and Gender Information Value Date Recorded Sex Assigned at Not on file Legal Sex Female 7:21 AM BUNG REMOVER Gender Identity Not on file Sexual Orientation [...] without complication, unspecified whether snf insulin use ([facility]) HEMOGLOBIN A1C Routine 11/15/2023 12:00 AM CDT Type 2 diabetes mellitus without complication, unspecified whether long term care administrator insulin use ([facility]) from Last 3 Months or Most Recently Relevant to Health Maintenance Results * HEMOGLOBIN A1C (11/15/2023 12:00 AM CDT) ABSTRACTED HGB A1C 9.8 % EXTERNAL LAB Blood 11/15/2023 [facility] [employer] Janice MANAGER INTEL CHEMISTRY ORDERABLES Marni l Result Performing Organization Address [facility] Co de Phone Number EXTERNAL LAB * LIPID PANEL (11/15/2023 12:00 AM CDT) ABSTRACTED CHOLESTEROL 208 EXTERNAL LAB ABSTRACTED TRIGLYCERIDE 222 EXTERNAL LAB ABSTRACTED HDL 48 EXTERNAL LAB ABSTRACTED LDL CALCULATED 121 EXTERNAL LAB Blood 11/15/2023 [facility] MANAGER INTEL CHEMISTRY ORDERABLES Marni l Result EXTERNAL LAB from Last 3 Months or Most Recently Relevant to Health Maintenance Care Teams Duplex Trimmer Relationship Specialty Start Date End Date Evans Fernandez MD [address] [place] [phone] PCP - General Family Practice 10/31/23
--- OUTSIDE RECORDS SUMMARY | 2025-04-26 12:12 | XMS_ITS | Encounter Summary ---
Author Organization [facility] Address [address] [place] [address] Care Team Providers Care End Matcher Name Role Phone Unavailable Primary Care Provider Unavailabl e Encounter Details Date Type Department Care Team (Latest Contact Info) Description 12/22/2000 Outpatient Historical [facility] [employer] [address] [phone] Pinky Bravo MD [address] [place] [phone] Dysmenorrhea (Primary Dx); Excessive menstruation Social History Tobacco Use Types Packs/Day Years Used Date Smoking Tobacco: Never Assessed Comments Unknown Sex and Gender Information Value Date Recorded Sex Assigned at Not on file 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
--- NOTE | 2025-04-26 13:07 | CTR_ITS ---
PROCEDURE INFORMATION: Exam: CT Abdomen And Pelvis With Contrast Exam date and time: 04/26/2025 1:55 PM Age: 65 years old Clinical indication: Mass, lump, or swelling; Luq; Abdominal pain; Localized; Left; Additional info: Urinary symptoms, large left back mass over left CVA TECHNIQUE: Imaging protocol: Computed tomography of the abdomen and pelvis with contrast. Radiation optimization: All CT scans at this facility use at least one of these dose optimization techniques: automated exposure control; mA and/or kV adjustment per patient size (includes targeted exams where dose is matched to clinical indication); or iterative reconstruction. Contrast material: OMNIPAQUE 350; Contrast volume: 100 ml; Contrast route: INTRAVENOUS (IV); COMPARISON: CT kidney stone [id number] 05/11/2019 1:45 PM RADIATION DOSE METRICS: Total DLP (mGy-cm): 550.05 FINDINGS: Lungs: Few nonspecific although chronic appearing strands of the lung bases. Liver: Ring enhancing lesion in the right hepatic lobe, could represent hemangioma though other etiologies including infection not excluded given clinical scenario. Consider nonurgent hepatic lesion protocol for further characterization. Gallbladder and biliary ducts: Gallstones without definite significant acute inflammatory changes. Pancreas: Multiple tiny cystic densities throughout the body and tail of the pancreas, could be related to prior episode of pancreatitis or could represent small IPMNs with other etiologies not excluded. Spleen: Normal. No splenomegaly. Adrenal glands: Query mild nodularity of left adrenal. Kidneys and ureters: Probable obstructing calculus of the left UPJ, stone measuring up to 8 mm in maximum dimension, with associated enhancing urothelium and ring enhancing lesion at the mid anterior pole measuring up to 1.5 cm, possibly tiny abscess; may represent complicated pyelonephritis, likely source of adjacent retroperitoneal abscess (see axial image 28) though findings nonspecific. Stomach and bowel: Unremarkable. No obstruction. No mucosal thickening. Appendix: No evidence of appendicitis. Intraperitoneal space: Large hemangioma involving the subdiaphragmatic region of the liver, measures up to 5.2 cm. Retroperitoneal space: Large abscess involving the left retroperitoneum, with multiple loculations, overall area measuring up to 11.6 cm in maximum transverse dimension and up to 20 cm in craniocaudal dimension. Vasculature: Unremarkable. No abdominal aortic aneurysm. Lymph nodes: Unremarkable. No enlarged lymph nodes. Urinary bladder: Unremarkable as visualized. Reproductive: Probable fibroid uterus. Bones/joints: [id number] degenerative changes of the lumbar vertebral bodies. Grade 1 anterolisthesis of L4 on L5. Soft tissues: Unremarkable. CT/CT abdomen pelvis w con* [id number] IMPRESSION: 1. Large abscess involving the left retroperitoneum, with multiple loculations, overall area measuring up to 11.6 cm in maximum transverse dimension and up to 20 cm in craniocaudal dimension. 2. Ring enhancing lesion in the right hepatic lobe, could represent hemangioma though other etiologies including infection not excluded given clinical scenario. Consider nonurgent hepatic lesion protocol for further characterization. 3. Probable obstructing calculus of the left UPJ, stone measuring up to 8 mm in maximum dimension, with associated enhancing urothelium and ring enhancing lesion at the mid anterior pole measuring up to 1.5 cm, possibly tiny abscess; may represent complicated pyelonephritis, likely source of adjacent retroperitoneal abscess though findings nonspecific.
--- NOTE | 2025-04-26 13:09 | W.ED.FEMALGU ---
Documented by User: NESHA Vinson 04/26/25 16:51 HPI - Female Genitourinary General: Chief complaint: Urogenital-Female Stated complaint: urinary / Lump LT low abd Time Seen by Provider: 04/26/25 13:01 Source: patient Mode of arrival: ambulatory Limitations: no limitations History of Present Illness: Patient is a 65-year-old female presenting to the emergency department complaining of UTI symptoms, as well as large masslike swelling to her left upper back that is painful and has been worsening over the past few days. She states she has a history of UTI, currently is having bilateral flank pain, burning with urination, urinary incontinence, and this is all consistent with her history of frequent UTI. Along with this she tells me that the lump has never been an issue before and just popped up a few days ago. She states it is tender but there is no overlying redness or warmth. She endorses painful supine positioning secondary to the prominence of it. She does note subjective fevers and chills at home. She is not endorsing any nausea or vomiting at this time. She is tachycardic at bedside during my examination but tells me that is because she is anxious, but also tells me that she might be dehydrated as she has had a dry mouth as well. MD elicited complaint: dysuria, UTI and flank pain Pertinent past history: recurrent UTIs Onset (ago): day(s) Location of symptoms: urethra and flank Associated symptoms: Deny abdominal pain, headache(s) or nausea Related Data Home Medications ?Medication ?Instructions ?Recorded ?Confirmed metformin 1,000 mg tablet 1,000 mg PO BID 05/29/19 04/26/25 glipizide 10 mg tablet 10 mg PO BID 04/26/25 04/26/25 Allergies Allergy/AdvReac Type Severity Reaction Status Date / Time morphine Allergy ADR-Vomitin Verified 04/26/25 12:13 g Review of Systems General: Reports: 10 or more systems reviewed and unremarkable except in HPI and below Const: Reports: fever(s) and chills; Denies: fatigue Eyes: Denies: change in vision ENMT: Denies: throat pain, ear or mastoid pain or nasal discharge Card: Denies: chest pain, palpitations, swelling of feet/ankles or lightheadedness Resp: Denies: dyspnea, productive cough or wheezing GI: Denies: abdominal pain, nausea, vomiting, diarrhea or constipation : Reports: flank pain, dysuria and urinary incontinence; Denies: difficulty voiding or hematuria Musc: Denies: neck pain, back pain or joint pain Skin/Breast: Reports: skin pain, skin tenderness and new lesions (Left thoracic back region) Neuro: Denies: headache(s), numbness in extremities or weakness in extremities PFSH ED PFSH: Medical History Chronic cystitis Pyelonephritis Acute pyelonephritis Significantly improved Diabetes Stable Surgical History History of wisdom tooth extraction Family History Mother Arthritis Father Diabetes Skin cancer Other CAD (coronary artery disease) Social History Smoking and tobacco/nicotine status: never used tobacco/nicotine Alcohol intake: never Substance/Drug Use: unknown Adopted: No Caregiver/support person: No Marital status: Current occupational status: employed Physical Exam Const: COMMON NORMALS: patient oriented x3, no limitations, alert and well nourished GENERAL APPEARANCE: cooperative ORIENTATION/CONSCIOUSNESS: Yes awake OTHER: Nontoxic, appears uncomfortable HENMT: COMMON NORMALS: normocephalic and atraumatic HEAD & SCALP: normocephalic and atraumatic OTHER: Dry cracked tongue and oral mucosa Neck/C-Spine: COMMON NORMALS: full ROM, supple and no meningeal signs Resp: COMMON NORMALS: normal respiratory effort, No retractions, No use of accessory muscles and clear to auscultation bilaterally AUSCULTATION: clear to auscultation bilaterally, no crackles, no rales, no rhonchi and no wheezes Cardio: COMMON NORMALS: regular rhythm, No gallops present (Cardio), No clicks present (Cardio), No murmurs present (Cardio) and No rub (Cardio) RATE: tachycardic RHYTHM: regular rhythm GI: COMMON NORMALS: Normal to inspection, nondistended, normoactive bowel sounds present, Soft to palpation, non-tender, No hepatosplenomegaly present and no masses AUSCULTATION: Yes normoactive bowel sounds PALPATION: Yes Soft to palpation, No Guarding due to palpation present (GI), No Rigid due to palpation and Yes No hepatosplenomegaly present RECTAL EXAM: deferred Back/Pelvis: OTHER: There is left CVA tenderness, and associated large masslike lesion that feels hard, and is tender to palpation. No overlying redness or warmth. Extremity: COMMON NORMALS: normal to inspection and full ROM Neuro: COMMON NORMALS: patient oriented x3, moves all extremities, no focal motor deficits and no sensory deficits noted SENSORIUM/ORIENTATION: Yes alert MENINGEAL SIGNS: Yes no meningeal signs Skin: COMMON NORMALS: no rashes or lesions noted GENERAL SKIN EXAM: no rashes or lesions noted Course Vital Signs: Vital signs: Vital Signs Temperature 97.5 F L 04/26/25 12:10 Pulse Rate 90 04/26/25 15:37 Respiratory Rate 16 04/26/25 15:37 Blood Pressure 110/79 04/26/25 15:37 Pulse Oximetry 95 04/26/25 15:37 Oxygen Delivery Me thod Room Air 04/26/25 12:10 MDM - Female Medical Decision Making Patient presented for urinary tract infection symptoms, she has a history of UTI. She arrives tachycardic but afebrile. Blood cultures obtained and IV established. On exam there is a large masslike swelling of the left CVA area that is tender to palpation. However there is no overlying cellulitis present or warmth. Her blood work shows significant leukocytosis at 21, lactic acidosis of 4.5. Her kidney function is normal. Urinalysis confirming presence of a UTI. CT abdomen and pelvis showing large abscess that is retroperitoneal measuring 20 cm, associated obstructed UPJ stone measuring 8 mm and associated pyelonephritis with possible renal abscess, likely the source of the large retroperitoneal abscess. Patient has remained stable her vitals have normalized here following sepsis maintenance fluids, and following the culture she is administered Vanco and Zosyn. Reflex lactic 3.0. Initially I spoke to our general surgeon here Dr. Kennedy who states this needs transfer for multi specialty service. I spoke to urologist, Dr. Jewell, at [facility] in [place] who will consult IR, but excepts as long as IR is available. There is availability and I spoke to Dr. Rivera who is the accepting hospitalist, patient will travel by ground ambulance. Informed patient of plan of transfer, they agree and all of the questions and concerns addressed at this time. Lab Data 04/26/25 13:20 04/26/25 13:20 Radiology Impressions Abdomen/Pelvis CT 04/26/25 13:07 IMPRESSION: 1. Large abscess involving the left retroperitoneum, with multiple loculations, overall area measuring up to 11.6 cm in maximum transverse dimension and up to 20 cm in craniocaudal dimension. 2. Ring enhancing lesion in the right hepatic lobe, could represent hemangioma though other etiologies including infection not excluded given clinical scenario. Consider nonurgent hepatic lesion protocol for further characterization. 3. Probable obstructing calculus of the left UPJ, stone measuring up to 8 mm in maximum dimension, with associated enhancing urothelium and ring enhancing lesion at the mid anterior pole measuring up to 1.5 cm, possibly tiny abscess; may represent complicated pyelonephritis, likely source of adjacent retroperitoneal abscess though findings nonspecific. Laboratory Results WBC 21.05 10^3/uL (3.29-11.43) H 04/26/25 13:20 RBC 4.28 10^6/uL (3.85-5.65) 04/26/25 13:20 Hgb 11.60 g/dL (11.27-16.99) 04/26/25 13:20 Hct 38.1 % (36-47) 04/26/25 13:20 MCV 89.0 fl (85-98) 04/26/25 13:20 MCH 27.1 pg (27-33) 04/26/25 13:20 MCHC 30.4 g/dL (30-55) 04/26/25 13:20 RDW 17.7 % (12.1-15.1) H 04/26/25 13:20 Plt Count 570 10^3/cmm (157-399) H 04/26/25 13:20 MPV 9.3 fL (7.4-10.4) 04/26/25 13:20 Neut % (Auto) 84.6 % 04/26/25 13:20 Lymph % (Auto) 7.6 % 04/26/25 13:20 Elbert % (Auto) 6.7 % 04/26/25 13:20 Eos % (Auto) 0.1 % 04/26/25 13:20 Baso % (Auto) 0.5 % 04/26/25 13:20 Neut # (Auto) 17.82 10^3/uL (1.8-7.7) H 04/26/25 13:20 Lymph # (Auto) 1.6 10^3/uL (0.8-4.8) 04/26/25 13:20 Elbert # (Auto) 1.4 10^3/uL (0.2-0.9) H 04/26/25 13:20 Eos # (Auto) 0.0 10^3/uL (0.0-0.8) 04/26/25 13:20 Baso # (Auto) 0.1 10^3/uL (0.0-0.1) 04/26/25 13:20 Nucleated RBC % (auto) 0 % 04/26/25 13:20 Nucleated RBCs # 0.0 /100WBC 04/26/25 13:20 Sodium 137 mmol/L (136-145) 04/26/25 13:20 Potassium 4.2 mmol/L (3.5-5.1) 04/26/25 13:20 Chloride 99 mmol/L (98-107) 04/26/25 13:20 Carbon Dioxide 22 mmol/L (22-29) 04/26/25 13:20 Anion Gap 20.2 (5-19) H 04/26/25 13:20 BUN 21 mg/dL (8-23) 04/26/25 13:20 Creatinine 0.6 mg/dL (0.5-0.9) 04/26/25 13:20 GFR Calculation 101.0 mL/min (90-130) 04/26/25 13:20 Glucose 319 mg/dL (65-115) H 04/26/25 13:20 Calculated Osmolality 299 mOsm/kg (285-295) H 04/26/25 13:20 Lactic Acid 4.5 mmol/L (0.5-2.2) H* 04/26/25 13:20 Lactic Acid (Sepsis) 3.0 mmol/L (0.5-2.2) H 04/26/25 15:44 Calcium 9.5 mg/dL (8.5-10.5) 04/26/25 13:20 Total Bilirubin 0.5 mg/dL (0.15-1.2) 04/26/25 13:20 AST 10 U/L (0-32) 04/26/25 13:20 ALT 10 U/L (0-33) 04/26/25 13:20 Alkaline Phosphatase 93 U/L (35-105) 04/26/25 13:20 Total Protein 6.8 g/dL (6.6-8.7) 04/26/25 13:20 Albumin 3.3 g/dL (3.5-5.2) L 04/26/25 13:20 Globulin 3.5 g/dL (1.3-4.6) 04/26/25 13:20 Lipase 26 U/L (13-60) 04/26/25 13:20 Urine Color Dark yellow (Yellow) A 04/26/25 14:19 Urine Appearance Cloudy (CLEAR) A 04/26/25 14:19 Urine pH 5.5 (5-7) 04/26/25 14:19 Ur Specific [place] 1.037 (1.005-1.030) H 04/26/25 14:19 Urine Protein 1+ (Negative) A 04/26/25 14:19 Urine Glucose (UA) Negative (Normal) 04/26/25 14:19 Urine Ketones Negative (Negative) 04/26/25 14:19 Urine Blood Trace (Negative) A 04/26/25 14:19 Urine Nitrate Negative (Negative) 04/26/25 14:19 Urine Bilirubin Negative (Negative) 04/26/25 14:19 Urine Urobilinogen 1.0 mg/dL (Negative) 04/26/25 14:19 Ur Leukocyte Esterase 2+ (Negative) A 04/26/25 14:19 Urine RBC 0-2 /hpf (0-2) 04/26/25 14:19 Urine WBC >100 /hpf (0-5) H 04/26/25 14:19 Ur Squamous Epith Cells 0-5 /hpf (0-5) 04/26/25 14:19 Amorphous Sediment Not Reportable 04/26/25 14:19 Urine Bacteria 1+ /hpf (NONE) H 04/26/25 14:19 Hyaline Casts 10.73 /lpf 04/26/25 14:19 All radiology interpretation(s) finalized by discharge Discharge Plan Discharge Patient Disposition: Xfer Short-Term Hosp Clinical Impression: Retroperitoneal abscess, Pyelonephritis, Obstruction of left ureteropelvic junction (UPJ) Sepsis Qualifiers: Sepsis type: sepsis due to unspecified organism Sepsis acute organ dysfunction status: without acute organ dysfunction Qualified Code(s): A41.9 - Sepsis, unspecified organism Condition: Stable Referrals: Delfina Arzola [Primary Care Provider, Wound Care] Print Language: Kenyan Coding 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[employer] Documented by User: Sanjay Norris MD 04/26/25 17:04 HPI - Female Genitourinary General: Chief complaint: Urogenital-Female Stated complaint: urinary / Lump LT low abd Time Seen by Provider: 04/26/25 13:01 Related Data Home Medications ?Medication ?Instructions ?Recorded ?Confirmed metformin 1,000 mg tablet 1,000 mg PO BID 05/29/19 04/26/25 glipizide 10 mg tablet 10 mg PO BID 04/26/25 04/26/25 Allergies Allergy/AdvReac Type Severity Reaction Status Date / Time morphine Allergy ADR-Vomitin Verified 04/26/25 12:13 g PFSH ED PFSH: Medical History Chronic cystitis Pyelonephritis Acute pyelonephritis Significantly improved Diabetes Stable Surgical History History of wisdom tooth extraction Family History Mother Arthritis Father Diabetes Skin cancer Other CAD (coronary artery disease) Social History Smoking and tobacco/nicotine status: never used tobacco/nicotine Alcohol intake: never Substance/Drug Use: unknown Adopted: No Caregiver/support person: No Marital status: Current occupational status: employed Course Vital Signs: Vital signs: Vital Signs Temperature 97.5 F L 04/26/25 12:10 Pulse Rate 90 04/26/25 15:37 Respiratory Rate 16 04/26/25 15:37 Blood Pressure 110/79 04/26/25 15:37 Pulse Oximetry 95 04/26/25 15:37 Oxygen Delivery Me thod Room Air 04/26/25 12:10 MDM - Female Medical Decision Making Patient presented for urinary tract infection symptoms, she has a history of UTI. She arrives tachycardic but afebrile. Blood cultures obtained and IV established. On exam there is a large masslike swelling of the left CVA area that is tender to palpation. However there is no overlying cellulitis present or warmth. Her blood work shows significant leukocytosis at 21, lactic acidosis of 4.5. Her kidney function is normal. Urinalysis confirming presence of a UTI. CT abdomen and pelvis showing large abscess that is retroperitoneal measuring 20 cm, associated obstructed UPJ stone measuring 8 mm and associated pyelonephritis with possible renal abscess, likely the source of the large retroperitoneal abscess. Patient has remained stable her vitals have normalized here following sepsis maintenance fluids, and following the culture she is administered Vanco and Zosyn. Reflex lactic 3.0. Initially I spoke to our general surgeon here Dr. Kennedy who states this needs transfer for multi specialty service. I spoke to urologist, Dr. Jewell, at [facility] in [place] who will consult IR, but excepts as long as IR is available. There is availability and I spoke to Dr. Rivera who is the accepting hospitalist, patient will travel by ground ambulance. Informed patient of plan of transfer, they agree and all of the questions and concerns addressed at this time. I saw this patient with midlevel agree with his history and physical left a transfer due to infected stone along with large retroperitoneal abscesses seen on CT scan the patient was accepted at [facility] Lab Data 04/26/25 13:20 04/26/25 13:20 Radiology Impressions Abdomen/Pelvis CT 04/26/25 13:07 IMPRESSION: 1. Large abscess involving the left retroperitoneum, with multiple loculations, overall area measuring up to 11.6 cm in maximum transverse dimension and up to 20 cm in craniocaudal dimension. 2. Ring enhancing lesion in the right hepatic lobe, could represent hemangioma though other etiologies including infection not excluded given clinical scenario. Consider nonurgent hepatic lesion protocol for further characterization. 3. Probable obstructing calculus of the left UPJ, stone measuring up to 8 mm in maximum dimension, with associated enhancing urothelium and ring enhancing lesion at the mid anterior pole measuring up to 1.5 cm, possibly tiny abscess; may represent complicated pyelonephritis, likely source of adjacent retroperitoneal abscess though findings nonspecific. Laboratory Results WBC 21.05 10^3/uL (3.29-11.43) H 04/26/25 13:20 RBC 4.28 10^6/uL (3.85-5.65) 04/26/25 13:20 Hgb 11.60 g/dL (11.27-16.99) 04/26/25 13:20 Hct 38.1 % (36-47) 04/26/25 13:20 MCV 89.0 fl (85-98) 04/26/25 13:20 MCH 27.1 pg (27-33) 04/26/25 13:20 MCHC 30.4 g/dL (30-55) 04/26/25 13:20 RDW 17.7 % (12.1-15.1) H 04/26/25 13:20 Plt Count 570 10^3/cmm (157-399) H 04/26/25 13:20 MPV 9.3 fL (7.4-10.4) 04/26/25 13:20 Neut % (Auto) 84.6 % 04/26/25 13:20 Lymph % (Auto) 7.6 % 04/26/25 13:20 Elbert % (Auto) 6.7 % 04/26/25 13:20 Eos % (Auto) 0.1 % 04/26/25 13:20 Baso % (Auto) 0.5 % 04/26/25 13:20 Neut # (Auto) 17.82 10^3/uL (1.8-7.7) H 04/26/25 13:20 Lymph # (Auto) 1.6 10^3/uL (0.8-4.8) 04/26/25 13:20 Elbert # (Auto) 1.4 10^3/uL (0.2-0.9) H 04/26/25 13:20 Eos # (Auto) 0.0 10^3/uL (0.0-0.8) 04/26/25 13:20 Baso # (Auto) 0.1 10^3/uL (0.0-0.1) 04/26/25 13:20 Nucleated RBC % (auto) 0 % 04/26/25 13:20 Nucleated RBCs # 0.0 /100WBC 04/26/25 13:20 Sodium 137 mmol/L (136-145) 04/26/25 13:20 Potassium 4.2 mmol/L (3.5-5.1) 04/26/25 13:20 Chloride 99 mmol/L (98-107) 04/26/25 13:20 Carbon Dioxide 22 mmol/L (22-29) 04/26/25 13:20 Anion Gap 20.2 (5-19) H 04/26/25 13:20 BUN 21 mg/dL (8-23) 04/26/25 13:20 Creatinine 0.6 mg/dL (0.5-0.9) 04/26/25 13:20 GFR Calculation 101.0 mL/min (90-130) 04/26/25 13:20 Glucose 319 mg/dL (65-115) H 04/26/25 13:20 Calculated Osmolality 299 mOsm/kg (285-295) H 04/26/25 13:20 Lactic Acid 4.5 mmol/L (0.5-2.2) H* 04/26/25 13:20 Lactic Acid (Sepsis) 3.0 mmol/L (0.5-2.2) H 04/26/25 15:44 Calcium 9.5 mg/dL (8.5-10.5) 04/26/25 13:20 Total Bilirubin 0.5 mg/dL (0.15-1.2) 04/26/25 13:20 AST 10 U/L (0-32) 04/26/25 13:20 ALT 10 U/L (0-33) 04/26/25 13:20 Alkaline Phosphatase 93 U/L (35-105) 04/26/25 13:20 Total Protein 6.8 g/dL (6.6-8.7) 04/26/25 13:20 Albumin 3.3 g/dL (3.5-5.2) L 04/26/25 13:20 Globulin 3.5 g/dL (1.3-4.6) 04/26/25 13:20 Lipase 26 U/L (13-60) 04/26/25 13:20 Urine Color Dark yellow (Yellow) A 04/26/25 14:19 Urine Appearance Cloudy (CLEAR) A 04/26/25 14:19 Urine pH 5.5 (5-7) 04/26/25 14:19 Ur Specific [place] 1.037 (1.005-1.030) H 04/26/25 14:19 Urine Protein 1+ (Negative) A 04/26/25 14:19 Urine Glucose (UA) Negative (Normal) 04/26/25 14:19 Urine Ketones Negative (Negative) 04/26/25 14:19 Urine Blood Trace (Negative) A 04/26/25 14:19 Urine Nitrate Negative (Negative) 04/26/25 14:19 Urine Bilirubin Negative (Negative) 04/26/25 14:19 Urine Urobilinogen 1.0 mg/dL (Negative) 04/26/25 14:19 Ur Leukocyte Esterase 2+ (Negative) A 04/26/25 14:19 Urine RBC 0-2 /hpf (0-2) 04/26/25 14:19 Urine WBC >100 /hpf (0-5) H 04/26/25 14:19 Ur Squamous Epith Cells 0-5 /hpf (0-5) 04/26/25 14:19 Amorphous Sediment Not Reportable 04/26/25 14:19 Urine Bacteria 1+ /hpf (NONE) H 04/26/25 14:19 Hyaline Casts 10.73 /lpf 04/26/25 14:19 Discharge Plan Discharge Patient Disposition: Xfer Short-Term Hosp Clinical Impression: Retroperitoneal abscess, Pyelonephritis, Obstruction of left ureteropelvic junction (UPJ) Sepsis Qualifiers: Sepsis type: sepsis due to unspecified organism Sepsis acute organ dysfunction status: without acute organ dysfunction Qualified Code(s): A41.9 - Sepsis, unspecified organism Condition: Stable Referrals: Delfina Arzola [Primary Care Provider, Wound Care] Print Language: Kenyan Coding 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
[2025-04-26 13:25] LABS: Hematocrit 38.1 % (36-47); Hemoglobin 11.60 g/dL (11.27-16.99); Mean Corpuscular HGB Conc 30.4 g/dL (30-55); Mean Corpuscular Hemoglobin 27.1 pg (27-33); Mean Corpuscular Volume 89.0 fl (85-98); Nucleated Red Blood Cells % 0 %; Platelet Count 570 10^3/cmm (157-399); Red Blood Count 4.28 10^6/uL (3.85-5.65); White Blood Count 21.05 10^3/uL (3.29-11.43)
[2025-04-26 13:46] LABS: Alanine Aminotransferase 10 U/L (0-33); Albumin Level 3.3 g/dL (3.5-5.2); Alkaline Phosphatase 93 U/L (35-105); Anion Gap 20.2 (5-19); Aspartate Amino Transferase 10 U/L (0-32); Blood Urea Nitrogen 21 mg/dL (8-23); Calcium 9.5 mg/dL (8.5-10.5); Carbon Dioxide 22 mmol/L (22-29); Chloride 99 mmol/L (98-107); Globulin 3.5 g/dL (1.3-4.6); Glucose 319 mg/dL (65-115); Lipase 26 U/L (13-60); Osmolality Calculated 299 mOsm/kg (285-295); Potassium 4.2 mmol/L (3.5-5.1); Sodium 137 mmol/L (136-145); Total Protein 6.8 g/dL (6.6-8.7)
[2025-04-26] MEDS: iohexol 350 mg/mL 500 mL Btl (per mL) IV (14:06)
[2025-04-26 14:07] LABS: Lactic Sepsis W/Reflex 4.5 mmol/L (0.5-2.2)
[2025-04-26 14:33] LABS: Glucose Urine UA Negative (Normal); Nitrate Urine Negative (Negative)
[2025-04-26 14:38] LABS: Add Urine Microscopic? YES
[2025-04-26 15:04] LABS: Specific Gravity, Urine 1.037 (1.005-1.030); UA Slide Review UA Slide Review Perf
[2025-04-26] MEDS: piperacillin-tazobactam 3.375 GM in sodium chloride 0.9% (plus) 50 ML IV (15:09)
[2025-04-26 15:31] LABS: Reflex Lactate Order REFLEX LACTIC ORDERD
[2025-04-26 16:14] LABS: Lactic Acid level (Lactate) 3.0 mmol/L (0.5-2.2)
--- NOTE | 2025-04-27 10:36 | PC.NURSE ---
lab called with + blood culture from 1 bottle -- gram + cocci + clusters staph species, patient transported to [facility] on 04/26/25, sent results to [facility].
== END 2025-04-26 18:29 | disposition short-term general hospital (02) ==
PROVIDERS: Emergency Medicine; Emergency Provider Physician Assistant; PCP Nurse Practitioner Family
DX: K68.19 Other retroperitoneal abscess (principal); N11.1 Chronic obstructive pyelonephritis; A41.9 Sepsis, unspecified organism; E11.9 Type 2 diabetes mellitus without complications
CPT/HCPCS: 36415; 74177; 80053; 81001; 83605; 83690; 85025; 87040; 87077; 87086; 87150; 87186; 87205; 96365; 96367; 99285; J2543; J3373; J7030; J9999